=== PATIENT | female | born 1960 | race Caucasian/White ===

== ENCOUNTER → 2017-08-29 | Outpatient (CLI) | payer SELFPAY ==
--- NOTE | 2017-08-29 16:57 | Diagnostic Imaging Report ---
EXAMINATION: Magnetic resonance imaging of the right knee without intravenous contrast. DATE: August 29, 2017. COMPARISON: None. INDICATION: 56-year-old female, right knee pain. No known recent injury. TECHNIQUE: Multiplanar, multisequence non contrast enhanced MR imaging was accomplished. FINDINGS: MENISCI: The medial meniscus is intact. There is a longitudinal horizontal tear involving the anterior horn, body, and posterior horn of the lateral meniscus. LIGAMENTS AND TENDONS: The anterior and posterior cruciate ligaments are intact. The medial collateral ligament is intact. The iliotibial band, mid third lateral capsular ligament, fibular collateral ligament, biceps femoris tendon and conjoined tendon are intact. The quadriceps tendon and patella ligament are intact. JOINT: There is a 5 x 16 mm approximately 75% thickness cartilage defect involving the nlu-rr-czigugjtb weightbearing portion of the lateral femoral condyle with subjacent similar-sized cartilage defect involving the lateral tibial plateau. The medial compartment cartilage is intact. There is mild thinning and superficial irregularity of the patellofemoral compartment cartilage. There is minimal degenerative-related edema in the median patellar ridge. There is a trace knee joint effusion. There is low-level synovitis. BONE: The additional bone marrow signal is unremarkable. Specifically, negative for fracture, osteomyelitis, osteonecrosis, or marrow replacing process. BURSAE AND SOFT TISSUES: There is a very small slit-like Lara's cyst. There is nonspecific prepatellar subcutaneous edema. IMPRESSION: 1. Longitudinal horizontal tear involving the entire lateral meniscus. 2. Intact medial meniscus. 3. Intact anterior and posterior cruciate ligaments. 4. Moderate lateral and mild patellofemoral compartment arthritis. Trace knee joint effusion with low-level synovitis. Dictated by: Dictated on workstation # [id number]
== END ==
LOC: RAD 15:41
PROVIDERS: ATTEND Nurse Practitioner Family
DX: S83.281A Other tear of lateral meniscus, current injury, right knee, initial encounter (principal); M17.11 Unilateral primary osteoarthritis, right knee; X58.XXXA Exposure to other specified factors, initial encounter; Y99.8 Other external cause status
CPT/HCPCS: 73721

== ENCOUNTER → 2018-05-29 | Outpatient (CLI) | payer BC ==
--- NOTE | 2018-05-29 11:43 | Diagnostic Imaging Report ---
EXAMINATION: Magnetic resonance imaging of the left shoulder without contrast. DATE: May 29, 2018. COMPARISON: None. HISTORY: 57-year-old female, left shoulder pain. History of prior injury approximately 2.5 years ago. Limited range of motion. TECHNIQUE: Magnetic Resonance Imaging sequences were performed of the shoulder without contrast. FINDINGS: ROTATOR CUFF, LIGAMENTS, TENDONS, AND MUSCLES: There is tendinopathy of supraspinatus and infraspinatus. The teres minor tendon is intact. The subscapularis tendon is intact. There is normal rotator cuff muscle bulk and signal. LONG HEAD OF BICEPS: The biceps labral attachment and long head of the biceps tendon is intact. The long head of the biceps tendon is normally positioned within the bicipital groove. GLENOHUMERAL JOINT: The humeral head is well positioned relative to the glenoid. The labrum is grossly intact. There is no identified paralabral cyst. The articular cartilage is grossly intact. There is no joint effusion. ACROMIOCLAVICULAR JOINT: The acromioclavicular joint is normally aligned. The coracoclavicular and coracoacromial ligaments are intact. There are very mild acromioclavicular degenerative changes without undersurface osteophyte. BONE: The bones all have normal configuration. The bone marrow signal is within normal limits. Specifically, negative for fracture, osteomyelitis, osteonecrosis, or marrow replacing process. BURSAE AND SOFT TISSUES: The bursae and soft tissue surrounding the shoulder are unremarkable. IMPRESSION: 1. Negative for rotator cuff tendon tear. Supraspinatus and infraspinatus tendinopathy. 2. Very mild acromioclavicular degenerative changes without undersurface osteophyte. 3. Unremarkable appearance of the glenohumeral joint. 4. No acute fracture or bone contusion. Dictated by: Dictated on workstation # [id number]
== END ==
LOC: RAD 10:39
PROVIDERS: ATTEND Nurse Practitioner Family
DX: M19.012 Primary osteoarthritis, left shoulder (principal); M67.814 Other specified disorders of tendon, left shoulder
CPT/HCPCS: 73221

== ENCOUNTER → 2018-06-16 | Outpatient (CLI) | payer BC ==
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
== END ==
LOC: RAD 09:27
PROVIDERS: ATTEND Nurse Practitioner Family
DX: M48.02 Spinal stenosis, cervical region (principal); M50.321 Other cervical disc degeneration at C4-C5 level; M43.12 Spondylolisthesis, cervical region; G96.19 Other disorders of meninges, not elsewhere classified; M99.71 Connective tissue and disc stenosis of intervertebral foramina of cervical region; M50.21 Other cervical disc displacement, high cervical region; M46.82 Other specified inflammatory spondylopathies, cervical region
CPT/HCPCS: 72141

== ENCOUNTER → 2018-07-02 | Outpatient (CLI) | payer BC ==
--- NOTE | 2018-07-02 11:10 | Diagnostic Imaging Report ---
PROCEDURE: MRI left joint lower extremity without contrast. TECHNIQUE: Multiplanar, multisequence MR imaging of the left knee was performed without contrast. COMPARISON: None available. INDICATION: Chronic left knee pain and weakness. FINDINGS: MENISCI Medial meniscus: Normal. Lateral meniscus: Normal. LIGAMENTS ACL: Intact. PCL: Intact. MCL: Intact. LCL: The lateral collateral ligamentous complex is intact. EXTENSOR MECHANISM The extensor mechanism is intact. CARTILAGE Medial compartment: Medial compartment articular cartilage is well preserved without focal high-grade chondromalacia. Lateral compartment: The lateral compartment articular cartilage is preserved without high-grade chondromalacia. Patellofemoral compartment: Low-grade partial-thickness fibrillation of the surface lateral patellar facet. No full-thickness chondromalacia in the patellofemoral compartment. BONE No fracture, stress fracture or osteonecrosis. SOFT TISSUE No knee effusion or Lara's cyst. IMPRESSION: 1. No meniscal tear. 2. Minimal degenerative surface fraying of lateral patellar facet. Remainder of the articular cartilage in the knee is well-preserved. 3. Cruciate and collateral ligaments are normal. Dictated by: Dictated on workstation # [id number]
== END ==
LOC: RAD 08:11
PROVIDERS: ATTEND Nurse Practitioner Family
DX: M17.12 Unilateral primary osteoarthritis, left knee (principal)
CPT/HCPCS: 73721

== ENCOUNTER 2019-05-17 17:04 | Emergency (ER) | payer BC ==
[~2019-05-17] VITALS: Ht 165.1 cm; Wt 88.0 kg
--- OUTSIDE RECORDS SUMMARY | 2019-05-17 17:10 | XMS REPORT ---
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 Active 61124862 Problem Degenerative disc disease, cervical M50.30 Active 15116356 Problem Mixed hyperlipidemia E78.2 Active 753863739 Problem Primary osteoarthritis of left knee M17.12 Active 340207926150744 Problem Current moderate episode of major depressive disorder without prior episode F32.1 Active 18091342 Problem Injury of left shoulder, initial encounter S49.92XA Active 923375224 Problem Anterolisthesis M43.10 Active 087976843 Problem Primary osteoarthritis of right knee M17.11 Active 120092980 Problem Elevated blood pressure (not hypertension) R03.0 Active 742042908 ALLERGIES Substance Reaction Event Type Date Status Codeine Phosphate vomiting, stomach upset, hallucinations Drug Allergy May, Active bee stings anaphylaxis Non Drug Allergy May, Active ENCOUNTERS Encounter Location Date Diagnosis [facility] [id number] [address] Jun, Primary osteoarthritis of left knee M17.12 and Left anterior knee pain M25.562 [facility] [id number] [address] Jun, [facility] [id number] [place] [address] May, Cervical spine pain M54.2 [facility] [address] [address] May, [facility] [id number] [place] [address] May, Elevated blood pressure reading R03.0 ; Pain in right shoulder M25.511 ; Pain in left shoulder M25.512 ; Family history of rheumatoid arthritis Z82.61 ; Current moderate episode of major depressive disorder without prior episode F32.1 and 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 [id number] [place] [address] Nov, [address] [id number] [place] [address] Nov, [id number] [place] [phone] Oct[id number] [place] [address] Aug, [address] [id number] [place] [address] Aug, [address] [id number] [place] [address] Aug, [id number] [place] [address] Aug, Right anterior knee pain M25.561 [address] [id number] [place] [address] Jun, Cough R05 and Acute bronchitis, unspecified organism J20.9 [address] [facility] [id number] [place] [address] February, Encounter for routine adult health examination with abnormal findings Z00.01 [address] [facility] [id number] [place] [address] February, [address] [id number] [place] [address] February, Encounter for routine adult health examination with abnormal findings Z00.01 and Effusion of right knee M25.461 [address] [address] February, [address] [place] [address] Jan, Primary osteoarthritis of right knee M17.11 and Iliotibial band syndrome affecting right lower leg M76.31 [address] [id number] [place] [address] Jan, [id number] [place] [address] Jan, Acute pain of right knee M25.561 ; Hematuria R31.9 and Acute cystitis with hematuria N30.01 [address] [id number] [place] [address] Oct, Injury of left shoulder, initial encounter S49.92XA ; Elevated blood pressure (not hypertension) R03.0 and Facial lesion L98.9 IMMUNIZATIONS No Known Immunizations SOCIAL HISTORY Never Assessed REASON FOR VISIT Blood Pressure----DBennettRN PLAN OF CARE Activity Details Follow Up 3 Months, prn Reason:CHM/Pain/Depression VITAL SIGNS Height 65 in 2018-05-25 Weight 198 lbs 2018-05-25 Temperature 98.0 degrees Fahrenheit 2018-05-25 Heart Rate 100 bpm 2018-05-25 Respiratory Rate 20 2018-05-25 BMI 32.95 kg/m2 2018-05-25 Blood pressure systolic 172 mmHg 2018-05-25 Blood pressure diastolic 90 mmHg 2018-05-25 MEDICATIONS Medication Instructions Dosage Frequency Start Date End Date Duration Status Glucosamine Active Multivitamin/Minerals Active EPINEPHrine 0.3 MG/0.3ML Injection one time inject into thigh then go to nearest ER February, 1 dose Active Aleve 220 MG Orally every 12 hrs 1 tablet as needed 12h Active Trazodone HCl 50 mg Orally Once a day 1/2- 1 tablet daily at bedtime 24h May, 30 day(s) Active Tylenol 8 Hour Arthritis Pain 650 MG Orally every 8 hrs 2 tablets as needed 8h Active ProAir HFA 108 (90 Base) MCG/ACT Inhalation every 4 hrs 2 puffs as needed 4h Active RESULTS No Results PROCEDURES Procedure Date Ordered Result Body Site COMPLETE CBC W/AUTO DIFF WBC May 25, 2018 COMPREHEN METABOLIC PANEL May 25, 2018 VENIPUNCT, ROUTINE* May 25, 2018 LIPID PANEL May 25, 2018 ASSAY THYROID STIM HORMONE May 25, 2018 RBC SED RATE, AUTOMATED May 25, 2018 RHEUMATOID FACTOR, QUANT May 25, 2018 INSTRUCTIONS MEDICATIONS ADMINISTERED No Known Medications MEDICAL (GENERAL) HISTORY Type Description Date Medical History osteoarthritis Medical History degenerative joint disease Medical History depression Medical History hip dysplasia Surgical History tubal ligation Surgical History right knee arthroscopy x 2 20 years ago Surgical History carpal tunnel release - left 1997
--- OUTSIDE RECORDS SUMMARY | 2019-05-17 17:10 | XMS REPORT ---
Author Author THOM SAL Organization [facility] Address [address] [place] [address] Care Team Providers Care Manager Stars Name Role Phone SALTHOM Romero Unavailable PROBLEMS Type Condition ICD9-CM Code GHU32-LN Code Onset Dates Condition Status SNOMED Code Problem Cervical spinal stenosis M48.02 Active 47498221 Problem Perineural cysts G54.8 Active 71374667 Problem Degenerative disc disease, cervical M50.30 Active 99422355 Problem Mixed hyperlipidemia E78.2 Active 779181669 Problem Primary osteoarthritis of left knee M17.12 Active 724782975969900 Problem Current moderate episode of major depressive disorder without prior episode F32.1 Active 04117971 Problem Injury of left shoulder, initial encounter S49.92XA Active 749603743 Problem Anterolisthesis M43.10 Active 214163429 Problem Primary osteoarthritis of right knee M17.11 Active 974859527 Problem Elevated blood pressure (not hypertension) R03.0 Active 170531261 ALLERGIES Substance Reaction Event Type Date Status Codeine Phosphate vomiting, stomach upset, hallucinations Drug Allergy Jun, Active bee stings anaphylaxis Non Drug Allergy Jun, Active ENCOUNTERS Encounter Location Date Diagnosis [facility] [address] [address] Jun, [facility] [id number] [place] [address] Jun, Primary osteoarthritis of left knee M17.12 and Left anterior knee pain M25.562 [facility] [id number] [place] [address] Jun, [facility] [address] [address] May, Cervical spine pain M54.2 [facility] [id number] [place] [address] 16 May, 2018 [facility] [id number] [place] [address] May, Elevated blood pressure reading R03.0 ; Pain in right shoulder M25.511 ; Pain in left shoulder M25.512 ; Family history of rheumatoid arthritis Z82.61 ; Current moderate episode of major depressive disorder without prior episode F32.1 and 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 [facility] [id number] [place] [address] 19 Nov, 2017 [facility] [address] [address] Nov, [facility] [id number] [place] [phone] Oct, [facility] [id number] [place] [address] Aug, [facility] [id number] [place] [address] Aug, [facility] [id number] [place] [address] Aug, [facility] [id number] [place] [address] Aug, Right anterior knee pain M25.561 [address] [id number] [place] [address] Jun, Cough R05 and Acute bronchitis, unspecified organism J20.9 [facility] [id number] [place] [address] February, Encounter for routine adult health examination with abnormal findings Z00.01 [facility] [id number] [place] [address] February, [id number] [place] [address] February, Encounter for routine adult health examination with abnormal findings Z00.01 and Effusion of right knee M25.461 [address] [place] [address] February, [id number] [place] [address] Jan, Primary osteoarthritis of right knee M17.11 and Iliotibial band syndrome affecting right lower leg M76.31 [address] [facility] [id number] [place] [address] Jan, [id number] [place] [address] Jan, Acute pain of right knee M25.561 ; Hematuria R31.9 and Acute cystitis with hematuria N30.01 [address] [id number] [place] [address] Oct, Injury of left shoulder, initial encounter S49.92XA ; Elevated blood pressure (not hypertension) R03.0 and Facial lesion L98.9 IMMUNIZATIONS No Known Immunizations SOCIAL HISTORY Never Assessed REASON FOR VISIT knee pain, left-----DBennettRN PLAN OF CARE Activity Details Follow Up 3 Months, prn Reason:CHM/Osteoarthritis/ w/ Liban Pending Test MRI : Knee, Left w/o contrast VITAL SIGNS Height 65 in 2018-06-23 Weight 201 lbs 2018-06-23 Temperature 98.5 degrees Fahrenheit 2018-06-23 Heart Rate 100 bpm 2018-06-23 Respiratory Rate 20 2018-06-23 BMI 33.44 kg/m2 2018-06-23 Blood pressure systolic 124 mmHg 2018-06-23 Blood pressure diastolic 86 mmHg 2018-06-23 MEDICATIONS Medication Instructions Dosage Frequency Start Date End Date Duration Status Fish Oil 1000 MG Orally Once a day 1 capsule 24h Active Trazodone HCl 50 mg Orally Once a day 1/2- 1 tablet daily at bedtime 24h May, 30 day(s) Active EPINEPHrine 0.3 MG/0.3ML Injection one time inject into thigh then go to nearest ER February, 1 dose Active PredniSONE 10 mg Orally Once a day 4 tabs x 4 days, 3 tabs x 4 days, 2 tabs x 4 days then 1 tab x 4 days 24h May, Jun, 16 days Active RESULTS Name Result Date Reference Range Xray : Knee, Left 3 views (IN HOUSE) 2018-06-23 PROCEDURES Procedure Date Ordered Result Body Site X-RAY EXAM OF KNEE, 3 Jun 23, 2018 INSTRUCTIONS MEDICATIONS ADMINISTERED No Known Medications MEDICAL (GENERAL) HISTORY Type Description Date Medical History osteoarthritis Medical History degenerative joint disease Medical History depression Medical History hip dysplasia Surgical History tubal ligation Surgical History right knee arthroscopy x 2 20 years ago Surgical History carpal tunnel release - left 1997
--- OUTSIDE RECORDS SUMMARY | 2019-05-17 17:10 | XMS REPORT ---
Author Author THOM Mendez Organization [facility] Address [address] [place] [address] Care Team Providers Care Warehouse Distribution Associate Name Role Phone THOM Mendez Unavailable PROBLEMS Type Condition ICD9-CM Code PGF10-CY Code Onset Dates Condition Status SNOMED Code Problem Cervical spinal stenosis M48.02 Active 50201457 Problem Perineural cysts G54.8 Active 38410469 Problem Degenerative disc disease, cervical M50.30 Active 05286636 Problem Mixed hyperlipidemia E78.2 Active 460990132 Problem Primary osteoarthritis of left knee M17.12 Active 421278141197119 Problem Current moderate episode of major depressive disorder without prior episode F32.1 Active 17876960 Problem Injury of left shoulder, initial encounter S49.92XA Active 199081668 Problem Anterolisthesis M43.10 Active 293881552 Problem Primary osteoarthritis of right knee M17.11 Active 658685035 Problem Elevated blood pressure (not hypertension) R03.0 Active 089298697 ALLERGIES No Information ENCOUNTERS Encounter Location Date Diagnosis [place] [id number] [place] [address] Jul, [facility] [address] [place] [address] Jun, [facility] [id number] [place] [address] Jun, Primary osteoarthritis of left knee M17.12 and Left anterior knee pain M25.562 [facility] [id number] [place] [address] Jun, [facility] [address] [address] May, Cervical spine pain M54.2 [facility] [id number] [place] [address] 16 May, 2018 [facility] [id number] [place] [address] May, Elevated blood pressure reading R03.0 ; Pain in right shoulder M25.511 ; Pain in left shoulder M25.512 ; Family history of rheumatoid arthritis Z82.61 ; Current moderate episode of major depressive disorder without prior episode F32.1 and 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 [facility] [id number] [place] [phone] 19 Nov, 2017 [place] [address] [address] Nov, [place] [id number] [place] [address] Oct, [place] [id number] [place] [address] Aug, [facility] [id number] [place] [phone] Aug, [place] [id number] [place] [address] Aug, [facility] [id number] [place] [address] Aug, Right anterior knee pain M25.561 [place] [id number] [place] [address] Jun, Cough R05 and Acute bronchitis, unspecified organism J20.9 [place] [id number] [place] [address] 12 Feb, 2017 Encounter for routine adult health examination with abnormal findings Z00.01 [place] [id number] [place] [phone] February, [place] [address] [place] [id number] [place] [address] February, Encounter for routine adult health examination with abnormal findings Z00.01 and Effusion of right knee M25.461 [place] [address] [place] [address] February, [place] [address] [place] [address] Jan, Primary osteoarthritis of right knee M17.11 and Iliotibial band syndrome affecting right lower leg M76.31 [place] [id number] [place] [address] Jan, [place] [address] [place] [address] Jan, Acute pain of right knee M25.561 ; Hematuria R31.9 and Acute cystitis with hematuria N30.01 [place] [address] [place] [address] Oct, Injury of left shoulder, initial encounter S49.92XA ; Elevated blood pressure (not hypertension) R03.0 and Facial lesion L98.9 IMMUNIZATIONS No Known Immunizations SOCIAL HISTORY Never Assessed REASON FOR VISIT Medication request PLAN OF CARE VITAL SIGNS MEDICATIONS Medication Instructions Dosage Frequency Start Date End Date Duration Status Baclofen 20 mg Orally every 8 hrs prn 1 tablet with food or milk Jun, Active RESULTS No Results PROCEDURES No Known procedures INSTRUCTIONS MEDICATIONS ADMINISTERED No Known Medications MEDICAL (GENERAL) HISTORY Type Description Date Medical History osteoarthritis Medical History degenerative joint disease Medical History depression Medical History hip dysplasia Surgical History tubal ligation Surgical History right knee arthroscopy x 2 20 years ago Surgical History carpal tunnel release - left 1997
--- OUTSIDE RECORDS SUMMARY | 2019-05-17 17:10 | XMS REPORT ---
Author Author THOM SAL Organization [facility] Address [address] [place] [address] Care Team Providers Care Chief Environmental Commitment Officer Name Role Phone SALHARSHAD RomeroELE Unavailable PROBLEMS Type Condition ICD9-CM Code LUI42-AD Code Onset Dates Condition Status SNOMED Code Problem Cervical spinal stenosis M48.02 Active 88042409 Problem Perineural cysts G54.8 Active 52160713 Problem Degenerative disc disease, cervical M50.30 Active 60936818 Problem Mixed hyperlipidemia E78.2 Active 891531018 Problem Primary osteoarthritis of left knee M17.12 Active 213441612167973 Problem Current moderate episode of major depressive disorder without prior episode F32.1 Active 35416750 Problem Injury of left shoulder, initial encounter S49.92XA Active 237341629 Problem Anterolisthesis M43.10 Active 922084504 Problem Primary osteoarthritis of right knee M17.11 Active 586635453 Problem Elevated blood pressure (not hypertension) R03.0 Active 720619631 ALLERGIES Substance Reaction Event Type Date Status Codeine Phosphate vomiting, stomach upset, hallucinations Drug Allergy May, Active bee stings anaphylaxis Non Drug Allergy May, Active ENCOUNTERS Encounter Location Date Diagnosis [facility] [address], [place] [address] Jun, [facility] [address] [id number] [place] [address] Jun, Primary osteoarthritis of left knee M17.12 and Left anterior knee pain M25.562 [facility] [id number] [place] [address] Jun, [facility] [address] [place] [address] May, Cervical spine pain M54.2 [facility] [id number] [place] [address] 16 May, 2018 [facility] [id number] [place] [address] May, Elevated blood pressure reading R03.0 ; Pain in right shoulder M25.511 ; Pain in left shoulder M25.512 ; Family history of rheumatoid arthritis Z82.61 ; Current moderate episode of major depressive disorder without prior episode F32.1 and 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 [facility] [id number] [place] [address] 19 Nov, 2017 [facility] [address] [address] Nov, [facility] [address] [id number] [place] [address] Oct, [facility] [id number] [place] [address] Aug, [facility] [id number] [place] [address] Aug, [facility] [id number] [place] [address] Aug, [facility] [id number] [place] [address] Aug, Right anterior knee pain M25.561 [place] [address] [id number] [place] [address] Jun, Cough R05 and Acute bronchitis, unspecified organism J20.9 [facility] [address] [place] [address] [id number] [place] [address] February, Encounter for routine adult health examination with abnormal findings Z00.01 [facility] [address] [place] [address] [id number] [place] [address] February, [place] [address] [id number] [place] [address] February, Encounter for routine adult health examination with abnormal findings Z00.01 and Effusion of right knee M25.461 [place] [address] [place] [address] February, [place] [address] [place] [address] [id number] [place] [address] Jan, Primary osteoarthritis of right knee M17.11 and Iliotibial band syndrome affecting right lower leg M76.31 [place] [address] [place] [address] [id number] [place] [address] Jan, [place] [address] [place] [address] [id number] [place] [address] Jan, Acute pain of right knee M25.561 ; Hematuria R31.9 and Acute cystitis with hematuria N30.01 [place] [address] [place] [id number] [place] [address] Oct, Injury of left shoulder, initial encounter S49.92XA ; Elevated blood pressure (not hypertension) R03.0 and Facial lesion L98.9 IMMUNIZATIONS No Known Immunizations SOCIAL HISTORY Never Assessed REASON FOR VISIT RT shoulder pain-Gloria, Pt states LT shoulder hurts as well, MRI has been d one on it, though., Pt states she has neck pain x1 week. PLAN OF CARE Activity Details Follow Up prn, 3 Months Reason:CHM/pain VITAL SIGNS Height 65 in 2018-06-08 Weight 197.5 lbs 2018-06-08 Temperature 97.9 degrees Fahrenheit 2018-06-08 Heart Rate 113 bpm 2018-06-08 Respiratory Rate 20 2018-06-08 BMI 32.86 kg/m2 2018-06-08 Blood pressure systolic 132 mmHg 2018-06-08 Blood pressure diastolic 88 mmHg 2018-06-08 MEDICATIONS Medication Instructions Dosage Frequency Start Date End Date Duration Status Tylenol 8 Hour Arthritis Pain 650 MG Orally every 8 hrs 2 tablets as needed 8h Active Aleve 220 MG Orally every 12 hrs 1 tablet as needed 12h Active Glucosamine Active PredniSONE 10 mg Orally Once a day 4 tabs x 4 days, 3 tabs x 4 days, 2 tabs x 4 days then 1 tab x 4 days 24h May, Jun, 16 days Active Multivitamin/Minerals Active Trazodone HCl 50 mg Orally Once a day 1/2- 1 tablet daily at bedtime 24h May, 30 day(s) Active EPINEPHrine 0.3 MG/0.3ML Injection one time inject into thigh then go to nearest ER February, 1 dose Active Fish Oil 1000 MG Orally Once a day 1 capsule 24h Active RESULTS Name Result Date Reference Range MRI : Cervical w/o Contrast 2018-06-16 PROCEDURES No Known procedures INSTRUCTIONS MEDICATIONS ADMINISTERED No Known Medications MEDICAL (GENERAL) HISTORY Type Description Date Medical History osteoarthritis Medical History degenerative joint disease Medical History depression Medical History hip dysplasia Surgical History tubal ligation Surgical History right knee arthroscopy x 2 20 years ago Surgical History carpal tunnel release - left 1997
--- OUTSIDE RECORDS SUMMARY | 2019-05-17 17:10 | XMS REPORT ---
Author Author THOM SAL Organization [facility] Address [address] [place] [address] Care Team Providers Care Website Project Manager Name Role Phone SALTHOM Romero Unavailable PROBLEMS Type Condition ICD9-CM Code JED85-QA Code Onset Dates Condition Status SNOMED Code Problem Cervical spinal stenosis M48.02 Active 21671606 Problem Perineural cysts G54.8 Active 25724765 Problem Degenerative disc disease, cervical M50.30 Active 98881002 Problem Mixed hyperlipidemia E78.2 Active 508235271 Problem Primary osteoarthritis of left knee M17.12 Active 995298851366103 Problem Current moderate episode of major depressive disorder without prior episode F32.1 Active 00399010 Problem Injury of left shoulder, initial encounter S49.92XA Active 998234594 Problem Anterolisthesis M43.10 Active 700783371 Problem Primary osteoarthritis of right knee M17.11 Active 204051045 Problem Elevated blood pressure (not hypertension) R03.0 Active 387395515 ALLERGIES No Information ENCOUNTERS Encounter Location Date Diagnosis [facility] [address] [place] [address] Jun, [facility] [address] [place] [id number] [place] [address] Jun, Primary osteoarthritis of left knee M17.12 and Left anterior knee pain M25.562 [facility] [address] [address] Jun, [facility] [id number] [place] [address] May, Cervical spine pain M54.2 [facility] [id number] [place] [address] May, [facility] [address] [place] [address] May, Elevated blood pressure reading R03.0 ; Pain in right shoulder M25.511 ; Pain in left shoulder M25.512 ; Family history of rheumatoid arthritis Z82.61 ; Current moderate episode of major depressive disorder without prior episode F32.1 and 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 [place] [address] [id number] [place] [address] Nov, [place] [address] [place] [id number] [place] [address] Nov, [place] [address] [place] [id number] [place] [address] Oct, [place] [address] [place] [id number] [place] [address] Aug, [place] [address] [place] [id number] [place] [address] Aug, [place] [address] [place] [address] [id number] [place] [address] Aug, [place] [address] [place] [id number] [place] [address] Aug, Right anterior knee pain M25.561 [place] [address] [place] [id number] [place] [address] Jun, Cough R05 and Acute bronchitis, unspecified organism J20.9 [place] [address] [place] [address] [id number] [place] [address] February, Encounter for routine adult health examination with abnormal findings Z00.01 [place] [address] [place] [address] [id number] [place] [address] February, [place] [address] [place] [address] [id number] [place] [address] February, Encounter for routine adult health examination with abnormal findings Z00.01 and Effusion of right knee M25.461 [place] [address] [place] [address] [address] February, [facility] [address] [address] Jan, Primary osteoarthritis of right knee M17.11 and Iliotibial band syndrome affecting right lower leg M76.31 [place] [address] [place] [address] Jan, [place] [address] [place] [address] Jan, Acute pain of right knee M25.561 ; Hematuria R31.9 and Acute cystitis with hematuria N30.01 [place] [address], [place] [address] Oct, Injury of left shoulder, initial encounter S49.92XA ; Elevated blood pressure (not hypertension) R03.0 and Facial lesion L98.9 IMMUNIZATIONS No Known Immunizations SOCIAL HISTORY Never Assessed REASON FOR VISIT DI results PLAN OF CARE VITAL SIGNS MEDICATIONS Unknown Medications RESULTS No Results PROCEDURES No Known procedures INSTRUCTIONS MEDICATIONS ADMINISTERED No Known Medications MEDICAL (GENERAL) HISTORY Type Description Date Medical History osteoarthritis Medical History degenerative joint disease Medical History depression Medical History hip dysplasia Surgical History tubal ligation Surgical History right knee arthroscopy x 2 20 years ago Surgical History carpal tunnel release - left 1997
--- OUTSIDE RECORDS SUMMARY | 2019-05-17 17:10 | XMS REPORT ---
Author Author ALMAS VIRAMONTES [facility] Address [address] [place] [address] Care Team Providers Care Dramatic Teacher Name Role Phone LAMAS VIRAMONTES Unavailable PROBLEMS Type Condition ICD9-CM Code WAC56-UV Code Onset Dates Condition Status SNOMED Code Problem Cervical spinal stenosis M48.02 Active 93267613 Problem Perineural cysts G54.8 Active 29252605 Problem Degenerative disc disease, cervical M50.30 Active 55199532 Problem Mixed hyperlipidemia E78.2 Active 177003145 Problem Primary osteoarthritis of left knee M17.12 Active 953255170809005 Problem Current moderate episode of major depressive disorder without prior episode F32.1 Active 05725905 Problem Injury of left shoulder, initial encounter S49.92XA Active 044358778 Problem Anterolisthesis M43.10 Active 334402112 Problem Primary osteoarthritis of right knee M17.11 Active 385005439 Problem Elevated blood pressure (not hypertension) R03.0 Active 411515036 ALLERGIES No Information ENCOUNTERS Encounter Location Date Diagnosis [facility] [place] [id number] [place] [address] Sep, [facility] [place] [id number] [place] [address] Jul, [facility] [place] [id number] [place] [address] Jun, [facility] [place] [id number] [place] [address] Jun, Primary osteoarthritis of left knee M17.12 and Left anterior knee pain M25.562 [facility] [place] [id number] [place] [address] Jun, [facility] [place] [id number] [place] [address] May, Cervical spine pain M54.2 [place] [id number] [place] [address] May, [facility] [place] [id number] [place] [address] May, Elevated blood pressure reading R03.0 ; Pain in right shoulder M25.511 ; Pain in left shoulder M25.512 ; Family history of rheumatoid arthritis Z82.61 ; Current moderate episode of major depressive disorder without prior episode F32.1 and 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 [place] [address] [address] Nov, [place] [address] [address] Nov, [place] [address] [address] Oct, [facility] [place] [id number] [place] [address] Aug, [place] [address] [address] Aug, [place] [id number] [place] [address] Aug, [place] [id number] [place] [address] Aug, Right anterior knee pain M25.561 [place] [id number] [place] [address] Jun, Cough R05 and Acute bronchitis, unspecified organism J20.9 [place] [id number] [place] [address] February, Encounter for routine adult health examination with abnormal findings Z00.01 [place] [address] [address] February, [place] [address] [place] [address] February, Encounter for routine adult health examination with abnormal findings Z00.01 and Effusion of right knee M25.461 [place] [address] [place] [address] February, [place] [id number] [place] [address] Jan, Primary osteoarthritis of right knee M17.11 and Iliotibial band syndrome affecting right lower leg M76.31 [place] [id number] [place] [address] Jan, [place] [address] [place] [address] Jan, Acute pain of right knee M25.561 ; Hematuria R31.9 and Acute cystitis with hematuria N30.01 [place] [address] [place] [address] Oct, Injury of left shoulder, initial encounter S49.92XA ; Elevated blood pressure (not hypertension) R03.0 and Facial lesion L98.9 IMMUNIZATIONS No Known Immunizations SOCIAL HISTORY Never Assessed REASON FOR VISIT PLAN OF CARE VITAL SIGNS MEDICATIONS Medication Instructions Dosage Frequency Start Date End Date Duration Status Famotidine 20 MG Orally 2 times a day 1 tablet at bedtime 12h 30 day(s) Active Baclofen 10 MG Orally Three times a day 1 tablet 8h 24 Jun, 2018 90 days Unknown Fish Oil 1000 MG Orally Once a day 1 capsule 24h Unknown Melatonin Maximum Strength 5 MG Orally Once a day 4 tablets 24h 30 day(s) Active Trazodone HCl 50 mg Orally Once a day 1/2- 1 tablet daily at bedtime 24h 13 May, 2018 30 day(s) Unknown Glucosamine 500 MG Orally 2 times a day 3 capsules 12h 30 day(s) Active Percocet 7.5-325 MG Orally every 6 hrs 1 to 2 tablet as needed 6h Active EPINEPHrine 0.3 MG/0.3ML Injection one time inject into thigh then go to nearest ER February, 1 dose Unknown Acetaminophen ER 650 MG Orally 2 times a day 2 tablets 12h Active Aleve 220 MG Orally Once a day 2 tablets 24h Active RESULTS No Results PROCEDURES No Known [...]
--- OUTSIDE RECORDS SUMMARY | 2019-05-17 17:10 | XMS REPORT ---
Author Author THOM Mendez Organization [facility] Address [address] [place] [address] Care Team Providers Care Pea Viner Mechanic Name Role Phone THOM Mendez Unavailable PROBLEMS Type Condition ICD9-CM Code RXZ19-CF Code Onset Dates Condition Status SNOMED Code Problem Cervical spinal stenosis M48.02 Active 53529361 Problem Perineural cysts G54.8 Active 04392892 Problem Degenerative disc disease, cervical M50.30 Active 78795589 Problem Mixed hyperlipidemia E78.2 Active 509457460 Problem Primary osteoarthritis of left knee M17.12 Active 598565522819794 Problem Current moderate episode of major depressive disorder without prior episode F32.1 Active 17766724 Problem Injury of left shoulder, initial encounter S49.92XA Active 535002003 Problem Anterolisthesis M43.10 Active 426927192 Problem Primary osteoarthritis of right knee M17.11 Active 563594440 Problem Elevated blood pressure (not hypertension) R03.0 Active 636544660 ALLERGIES No Information ENCOUNTERS Encounter Location Date Diagnosis [place] [address] [place] [address] Jul, [facility] [address] [place] [address] Jun, [facility] [address] [place] [id number] [place] [address] Jun, Primary osteoarthritis of left knee M17.12 and Left anterior knee pain M25.562 [facility] [id number] [place] [address] Jun, [facility] [address], [place] [address] May, Cervical spine pain M54.2 [facility] [id number] [place] [address] 16 May, 2018 [facility] [address] [id number] [place] [address] May, Elevated blood pressure reading R03.0 ; Pain in right shoulder M25.511 ; Pain in left shoulder M25.512 ; Family history of rheumatoid arthritis Z82.61 ; Current moderate episode of major depressive disorder without prior episode F32.1 and 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 [facility] [address] [id number] [place] [address] 19 Nov, 2017 [place] [address] [address] Nov, [place] [address] [place] [id number] [place] [address] Oct, [place] [address] [place] [id number] [place] [address] Aug, [facility] [address] [id number] [place] [address] Aug, [place] [address] [address] [id number] [place] [address] Aug, [facility] [address] [id number] [place] [address] Aug, Right anterior knee pain M25.561 [place] [address] [id number] [place] [address] Jun, Cough R05 and Acute bronchitis, unspecified organism J20.9 [place] [address] [id number] [place] [address] 12 Feb, 2017 Encounter for routine adult health examination with abnormal findings Z00.01 [place] [address] [id number] [place] [address] February, [place] [address] [place] [id number] [place] [address] February, Encounter for routine adult health examination with abnormal findings Z00.01 and Effusion of right knee M25.461 [place] [address] [address] February, [place] [address] [address] Jan, Primary osteoarthritis of right knee M17.11 and Iliotibial band syndrome affecting right lower leg M76.31 [place] [address] [place] [address] Jan, [place] [address] [place] [address] Jan, Acute pain of right knee M25.561 ; Hematuria R31.9 and Acute cystitis with hematuria N30.01 [place] [address], [place] [address] Oct, Injury of left shoulder, initial encounter S49.92XA ; Elevated blood pressure (not hypertension) R03.0 and Facial lesion L98.9 IMMUNIZATIONS No Known Immunizations SOCIAL HISTORY Never Assessed REASON FOR VISIT MRI results PLAN OF CARE VITAL SIGNS MEDICATIONS Medication Instructions Dosage Frequency Start Date End Date Duration Status Baclofen 10 MG Orally Three times a day 1 tablet 8h Jun, 90 days Active RESULTS No Results PROCEDURES No Known [...]
--- OUTSIDE RECORDS SUMMARY | 2019-05-17 17:11 | XMS REPORT ---
Author Author DORONHARSHADTHOM [facility] Address [address] [place] [address] Care Team Providers Care Screen Cleaner Name Role Phone SALHARSHAD RomeroELE Unavailable PROBLEMS Type Condition ICD9-CM Code LIY51-XY Code Onset Dates Condition Status SNOMED Code Problem Primary osteoarthritis of right knee M17.11 Active 488409644 Problem Injury of left shoulder, initial encounter S49.92XA Active 745367250 Problem Elevated blood pressure (not hypertension) R03.0 Active 232142741 ALLERGIES No Information ENCOUNTERS Encounter Location Date Diagnosis [place] [address] [place] [id number] [place] [address] Nov, [facility] [id number] [place] [address] Nov, [facility] [id number] [place] [address] Oct, [facility] [id number] [place] [address] Aug, [place] [address] [address] [id number] [place] [address] Aug, [facility] [id number] [place] [address] Aug, [facility] [id number] [place] [address] Aug, Right anterior knee pain M25.561 [facility] [id number] [place] [address] Jun, Cough R05 and Acute bronchitis, unspecified organism J20.9 [facility] [address] [address] February, Encounter for routine adult health examination with abnormal findings Z00.01 [place] [address] [place] [address] February, [place] [address] [address] [id number] [place] [address] February, Encounter for routine adult health examination with abnormal findings Z00.01 and Effusion of right knee M25.461 [place] [address] [address] [id number] [place] [address] February, [place] [address] [address] [id number] [place] [address] Jan, Primary osteoarthritis of right knee M17.11 and Iliotibial band syndrome affecting right lower leg M76.31 [place] [address] [address] [id number] [place] [address] Jan, [place] [address] [address] [id number] [place] [address] Jan, Acute pain of right knee M25.561 ; Hematuria R31.9 and Acute cystitis with hematuria N30.01 [place] [address] [place] [address] Oct, Injury of left shoulder, initial encounter S49.92XA ; Elevated blood pressure (not hypertension) R03.0 and Facial lesion L98.9 IMMUNIZATIONS No Known Immunizations SOCIAL HISTORY Never Assessed REASON FOR VISIT PLAN OF CARE VITAL SIGNS MEDICATIONS Unknown Medications RESULTS No Results PROCEDURES No Known procedures INSTRUCTIONS MEDICATIONS ADMINISTERED No Known Medications MEDICAL (GENERAL) HISTORY Type Description Date Surgical History tubal ligation Surgical History right knee arthroscopy x 2 20 years ago Surgical History carpal tunnel release - left 1997
--- OUTSIDE RECORDS SUMMARY | 2019-05-17 17:11 | XMS REPORT ---
Author Author THOM SAL Organization [facility] Address [address] [place] [address] Care Team Providers Care Care Aide Name Role Phone THOM SAL Unavailable PROBLEMS Type Condition ICD9-CM Code JKO16-NL Code Onset Dates Condition Status SNOMED Code Problem Primary osteoarthritis of right knee M17.11 Active 605305066 Problem Injury of left shoulder, initial encounter S49.92XA Active 513197598 Problem Elevated blood pressure (not hypertension) R03.0 Active 635516854 ALLERGIES No Information SOCIAL HISTORY Never Assessed PLAN OF CARE VITAL SIGNS MEDICATIONS No Known Medications RESULTS Name Result Date Reference Range THYROID ANALYZER 2017-02-21 TSH 3.920 0.450-4.500 A1C 2017-02-21 Hemoglobin A1c 5.1 4.8-5.6 CBC 2017-02-21 WBC 7.1 3.4-10.8 RBC 4.57 3.77-5.28 Hemoglobin 14.0 11.1-15.9 Hematocrit 42.3 34.0-46.6 MCV 93 79-97 MCH 30.6 26.6-33.0 MCHC 33.1 31.5-35.7 RDW 13.7 12.3-15.4 Platelets 303 150-379 Neutrophils 65 Lymphs 26 Monocytes 7 Eos 1 Basos 0 Neutrophils (Absolute) 4.6 1.4-7.0 Lymphs (Absolute) 1.9 0.7-3.1 Monocytes(Absolute) 0.5 0.1-0.9 Eos (Absolute) 0.1 0.0-0.4 Baso (Absolute) 0.0 0.0-0.2 Immature Granulocytes 1 Immature Grans (Abs) 0.1 0.0-0.1 LIPID PANEL 2017-02-21 Cholesterol, Total 318 100-199 Triglycerides 112 0-149 HDL Cholesterol 121 >39 VLDL Cholesterol Terence 22 5-40 LDL Cholesterol Calc 175 0-99 CMP 2017-02-21 Glucose, Serum 83 65-99 BUN 19 6-24 Creatinine, Serum 0.77 0.57-1.00 eGFR If NonAfricn Am 88 >59 eGFR If Africn Am 101 >59 BUN/Creatinine Ratio 25 9-23 Sodium, Serum 141 134-144 Potassium, Serum 4.5 3.5-5.2 Chloride, Serum 106 96-106 Carbon Dioxide, Total 21 18-29 Calcium, Serum 9.3 8.7-10.2 Protein, Total, Serum 7.0 6.0-8.5 Albumin, Serum 4.5 3.5-5.5 Globulin, Total 2.5 1.5-4.5 A/G Ratio 1.8 1.2-2.2 Bilirubin, Total 0.6 0.0-1.2 Alkaline Phosphatase, S 86 39-117 AST (SGOT) 14 0-40 ALT (SGPT) 17 0-32 PROCEDURES Procedure Date Ordered Result Body Site ASSAY THYROID STIM HORMONE February 21, 2017 GLYCATED HEMOGLOBIN TEST February 21, 2017 LIPID PANEL February 21, 2017 COMPLETE CBC W/AUTO DIFF WBC February 21, 2017 VENIPUNCT, ROUTINE* February 21, 2017 COMPREHEN METABOLIC PANEL February 21, 2017 IMMUNIZATIONS No Known Immunizations MEDICAL (GENERAL) HISTORY Type Description Date Surgical History tubal ligation Surgical History right knee arthroscopy x 2 20 years ago Surgical History carpal tunnel release - left 1997
--- OUTSIDE RECORDS SUMMARY | 2019-05-17 17:11 | XMS REPORT ---
Author Author DORONHARSHADTHOM [facility] Address [address] [place] [address] Care Team Providers Care Division Merchandise Manager Name Role Phone SALTHOM Romero Unavailable PROBLEMS Type Condition ICD9-CM Code HNW70-XK Code Onset Dates Condition Status SNOMED Code Problem Primary osteoarthritis of right knee M17.11 Active 609318246 Problem Injury of left shoulder, initial encounter S49.92XA Active 836728436 Problem Elevated blood pressure (not hypertension) R03.0 Active 959489836 ALLERGIES Substance Reaction Event Type Date Status Percocet hives Drug Allergy Jun, Active Codeine Phosphate vomiting, stomach upset, hallucinations Drug Allergy Jun, Active bee stings anaphylaxis Non Drug Allergy Jun, Active ENCOUNTERS Encounter Location Date Diagnosis [facility] [id number] [place] [address] Nov, [facility] [id number] [place] [address] Nov, [facility] [id number] [place] [address] Oct, [facility] [id number] [place] [address] Aug, [facility] [id number] [place] [address] Aug, [facility] [id number] [place] [address] Aug, [facility] [id number] [place] [address] Aug, Right anterior knee pain M25.561 [facility] [id number] [place] [address] Jun, Cough R05 and Acute bronchitis, unspecified organism J20.9 [place] [address] [address] February, Encounter for routine adult health examination with abnormal findings Z00.01 [place] [address] [address] February, [place] [address] [address] February, Encounter for routine adult health examination with abnormal findings Z00.01 and Effusion of right knee M25.461 [place] [address] [address] February, [place] [address] [address] Jan, Primary osteoarthritis of right knee M17.11 and Iliotibial band syndrome affecting right lower leg M76.31 [place] [address] [address] Jan, [place] [address] [address] Jan, Acute pain of right knee M25.561 ; Hematuria R31.9 and Acute cystitis with hematuria N30.01 [place] [address] [address] Oct, Injury of left shoulder, initial encounter S49.92XA ; Elevated blood pressure (not hypertension) R03.0 and Facial lesion L98.9 IMMUNIZATIONS No Known Immunizations SOCIAL HISTORY Never Assessed REASON FOR VISIT Cough, chest congestion, and fatigued, pt. went into urgent care and was told marco guillory has walking pneumonia and she is not any better, ABHILASH Ramos PLAN OF CARE Activity Details Follow Up 1 Week if not improving Reason: VITAL SIGNS Height 65 in 2017-07-08 Weight 186.7 lbs 2017-07-08 Temperature 98.9 degrees Fahrenheit 2017-07-08 Heart Rate 86 bpm 2017-07-08 Respiratory Rate 20 2017-07-08 Oximetry 94 % 2017-07-08 BMI 31.07 kg/m2 2017-07-08 Blood pressure systolic 129 mmHg 2017-07-08 Blood pressure diastolic 78 mmHg 2017-07-08 MEDICATIONS Medication Instructions Dosage Frequency Start Date End Date Duration Status Doxycycline Monohydrate 100 mg Orally every 12 hrs 1 capsule 12h Jun, Jul, 10 days Active ProAir HFA 108 (90 Base) MCG/ACT Inhalation every 4 hrs 2 puffs as needed 4h Active Aleve 220 MG Orally every 12 hrs 1 tablet as needed 12h Active EPINEPHrine 0.3 MG/0.3ML Injection one time inject into thigh then go to nearest ER February, 1 dose Active Tessalon Perles 100 mg Orally Three times a day 1 capsule as needed 8h Jun, Jul, [address] Lomas Wort Active Multivitamin/Minerals Active Glucosamine Active EPINEPHrine HCl (Anaphylaxis) Active RESULTS Name Result Date Reference Range Xray : Chest (IN HOUSE) 2017-07-08 MYCOPLASMA, IgM 2017-07-08 M pneumoniae IgM Abs <[id number] PROCEDURES Procedure Date Ordered Result Body Site CHEST X-RAY Jul 08, 2017 MEASURE BLOOD OXYGEN LEVEL Jul 08, 2017 VENIPUNCT, ROUTINE* Jul 08, 2017 MYCOPLASMA ANTIBODY Jul 08, 2017 INSTRUCTIONS MEDICATIONS ADMINISTERED No Known Medications MEDICAL (GENERAL) HISTORY Type Description Date Surgical History tubal ligation Surgical History right knee arthroscopy x 2 20 years ago Surgical History carpal tunnel release - left 1997
--- OUTSIDE RECORDS SUMMARY | 2019-05-17 17:11 | XMS REPORT ---
Author Author DORON THOM Organization [facility] Address [address] [place] [address] Care Team Providers Care Tree Scout Name Role Phone SALTHOM Romero Unavailable PROBLEMS Type Condition ICD9-CM Code LTS11-PN Code Onset Dates Condition Status SNOMED Code Problem Primary osteoarthritis of right knee M17.11 Active 202986429 Problem Injury of left shoulder, initial encounter S49.92XA Active 334497916 Problem Elevated blood pressure (not hypertension) R03.0 Active 032524889 ALLERGIES Substance Reaction Event Type Date Status Codeine Phosphate vomiting, stomach upset, hallucinations Drug Allergy Aug, Active bee stings anaphylaxis Non Drug Allergy Aug, Active ENCOUNTERS Encounter Location Date Diagnosis [facility] [id number] [place] [phone] Nov, [facility] [id number] [place] [address] Nov, [facility] [id number] [place] [address] Oct, [facility] [address] [place] [address] Aug, [facility] [id number] [place] [address] Aug, [facility] [id number] [place] [address] Aug, [facility] [id number] [place] [address] Aug, Right anterior knee pain M25.561 [facility] [id number] [place] [address] Jun, Cough R05 and Acute bronchitis, unspecified organism J20.9 [place] [address], [place] [address] February, Encounter for routine adult health examination with abnormal findings Z00.01 [place] [address], [place] [address] February, [place] [address] [place] [address] [id number] [place] [address] February, Encounter for routine adult health examination with abnormal findings Z00.01 and Effusion of right knee M25.461 [place] [address] [id number] [place] [address] February, [place] [address] [address] [id number] [place] [address] Jan, Primary osteoarthritis of right knee M17.11 and Iliotibial band syndrome affecting right lower leg M76.31 [place] [address] [address] [id number] [place] [address] Jan, [place] [address] [id number] [place] [address] Jan, Acute pain of right knee M25.561 ; Hematuria R31.9 and Acute cystitis with hematuria N30.01 [place] [address], [place] [address] Oct, Injury of left shoulder, initial encounter S49.92XA ; Elevated blood pressure (not hypertension) R03.0 and Facial lesion L98.9 IMMUNIZATIONS No Known Immunizations SOCIAL HISTORY Never Assessed REASON FOR VISIT allergy verification PLAN OF CARE VITAL SIGNS MEDICATIONS Unknown Medications RESULTS No Results PROCEDURES No Known procedures INSTRUCTIONS MEDICATIONS ADMINISTERED No Known Medications MEDICAL (GENERAL) HISTORY Type Description Date Surgical History tubal ligation Surgical History right knee arthroscopy x 2 20 years ago Surgical History carpal tunnel release - left 1997
--- OUTSIDE RECORDS SUMMARY | 2019-05-17 17:11 | XMS REPORT ---
Author Author THOM SAL Organization [facility] Address [address] [place] [address] Care Team Providers Care Pcb Designer Name Role Phone SALTHOM Romero Unavailable PROBLEMS Type Condition ICD9-CM Code DBD04-AX Code Onset Dates Condition Status SNOMED Code Problem Primary osteoarthritis of right knee M17.11 Active 658687669 Problem Injury of left shoulder, initial encounter S49.92XA Active 798003726 Problem Elevated blood pressure (not hypertension) R03.0 Active 033000007 ALLERGIES Substance Reaction Event Type Date Status Percocet hives Drug Allergy February, Active Codeine Phosphate vomiting, stomach upset, hallucinations Drug Allergy February, Active bee stings anaphylaxis Non Drug Allergy February, Active SOCIAL HISTORY Never Assessed PLAN OF CARE Activity Details Follow Up 3 Months, prn Reason:CHM VITAL SIGNS Height 65 in 2017-02-20 Weight 193 lbs 2017-02-20 Temperature 98.5 degrees Fahrenheit 2017-02-20 Heart Rate 70 bpm 2017-02-20 Respiratory Rate 20 2017-02-20 BMI 32.11 kg/m2 2017-02-20 Blood pressure systolic 140 mmHg 2017-02-20 Blood pressure diastolic 88 mmHg 2017-02-20 MEDICATIONS Medication Instructions Dosage Frequency Start Date End Date Duration Status EPINEPHrine 0.3 MG/0.3ML Injection one time inject into thigh then go to nearest ER February, [address] Lomas Wort Active EPINEPHrine HCl (Anaphylaxis) Active Glucosamine Active Aleve 220 MG Orally every 12 hrs 1 tablet as needed 12h Active Baclofen 20 mg Orally once daily as needed 1 tablet with food or milk Active Multivitamin/Minerals Active RESULTS No Results PROCEDURES No Known procedures IMMUNIZATIONS No Known Immunizations MEDICAL (GENERAL) HISTORY Type Description Date Surgical History tubal ligation Surgical History right knee arthroscopy x 2 20 years ago Surgical History carpal tunnel release - left 1997
--- OUTSIDE RECORDS SUMMARY | 2019-05-17 17:11 | XMS REPORT ---
Author Author DORONHARSHADTHOM [facility] Address [address] [place] [address] Care Team Providers Care Trimmer Operator Three Knife Name Role Phone SALHARSHDA RomeroELE Unavailable PROBLEMS Type Condition ICD9-CM Code PEU47-DT Code Onset Dates Condition Status SNOMED Code Problem Primary osteoarthritis of right knee M17.11 Active 790809621 Problem Injury of left shoulder, initial encounter S49.92XA Active 769254746 Problem Elevated blood pressure (not hypertension) R03.0 Active 091581081 ALLERGIES No Information ENCOUNTERS Encounter Location Date Diagnosis [place] [address] [id number] [place] [address] Nov, [facility] [id number] [place] [address] Nov, [facility] [id number] [place] [address] Oct, [facility] [id number] [place] [address] Aug, [place] [address] [id number] [place] [address] Aug, [facility] [id number] [place] [address] Aug, [facility] [id number] [place] [address] Aug, Right anterior knee pain M25.561 [facility] [id number] [place] [address] Jun, Cough R05 and Acute bronchitis, unspecified organism J20.9 [facility] [address] [address] February, Encounter for routine adult health examination with abnormal findings Z00.01 [place] [address] [place] [address] February, [place] [address] [id number] [place] [address] February, Encounter for routine adult health examination with abnormal findings Z00.01 and Effusion of right knee M25.461 [place] [id number] [place] [address] February, [place] [id number] [place] [address] Jan, Primary osteoarthritis of right knee M17.11 and Iliotibial band syndrome affecting right lower leg M76.31 [place] [id number] [place] [address] Jan, [place] [address] [id number] [place] [address] Jan, Acute pain of right knee M25.561 ; Hematuria R31.9 and Acute cystitis with hematuria N30.01 [place] [address] [place] [address] Oct, Injury of left shoulder, initial encounter S49.92XA ; Elevated blood pressure (not hypertension) R03.0 and Facial lesion L98.9 IMMUNIZATIONS No Known Immunizations SOCIAL HISTORY Never Assessed REASON FOR VISIT Needs note PLAN OF CARE VITAL SIGNS MEDICATIONS Unknown Medications RESULTS No Results PROCEDURES No Known procedures INSTRUCTIONS MEDICATIONS ADMINISTERED No Known Medications MEDICAL (GENERAL) HISTORY Type Description Date Surgical History tubal ligation Surgical History right knee arthroscopy x 2 20 years ago Surgical History carpal tunnel release - left 1997
--- OUTSIDE RECORDS SUMMARY | 2019-05-17 17:11 | XMS REPORT ---
Author Author THOM SAL Organization [facility] Address [address] [place] [address] Care Team Providers Care Property Claim Rep Name Role Phone THOM SAL Unavailable PROBLEMS Type Condition ICD9-CM Code [id number] Code Onset Dates Condition Status SNOMED Code Problem Primary osteoarthritis of right knee M17.11 Active 006266227 Problem Injury of left shoulder, initial encounter S49.92XA Active 104278533 Problem Elevated blood pressure (not hypertension) R03.0 Active 707801911 ALLERGIES Substance Reaction Event Type Date Status Percocet hives Drug Allergy February, Active Codeine Phosphate vomiting, stomach upset, hallucinations Drug Allergy February, Active bee stings anaphylaxis Non Drug Allergy February, Active SOCIAL HISTORY Never Assessed PLAN OF CARE VITAL SIGNS MEDICATIONS Medication Instructions Dosage Frequency Start Date End Date Duration Status Baclofen 20 mg Orally PRN 1 tablet with food or milk Active Aleve 220 MG Orally every 12 hrs 1 tablet as needed 12h Active Multivitamin/Minerals Active [facility] Wort Active Glucosamine Active RESULTS No Results PROCEDURES No Known procedures IMMUNIZATIONS No Known Immunizations MEDICAL (GENERAL) HISTORY Type Description Date Surgical History tubal ligation Surgical History right knee arthroscopy x 2 20 years ago Surgical History carpal tunnel release - left 1997
--- OUTSIDE RECORDS SUMMARY | 2019-05-17 17:11 | XMS REPORT ---
Author Author THOM SAL Organization [facility] Address [address] [place] [address] Care Team Providers Care Medical Technologist Microbiology Name Role Phone SALTHOM Romero Unavailable PROBLEMS Type Condition ICD9-CM Code KUU56-RD Code Onset Dates Condition Status SNOMED Code Problem Cervical spinal stenosis M48.02 Active 77507179 Problem Perineural cysts G54.8 Active 08402464 Problem Degenerative disc disease, cervical M50.30 Active 14008019 Problem Mixed hyperlipidemia E78.2 Active 465216237 Problem Primary osteoarthritis of left knee M17.12 Active 288415694788263 Problem Current moderate episode of major depressive disorder without prior episode F32.1 Active 94397725 Problem Injury of left shoulder, initial encounter S49.92XA Active 412332083 Problem Anterolisthesis M43.10 Active 933455928 Problem Primary osteoarthritis of right knee M17.11 Active 563527683 Problem Elevated blood pressure (not hypertension) R03.0 Active 190407491 ALLERGIES No Information ENCOUNTERS Encounter Location Date Diagnosis [place] [id number] [place] [phone] 11 Jun, 2018 Primary osteoarthritis of left knee M17.12 and Left anterior knee pain M25.562 [facility] [address] [place] [phone] Jun, [facility] [address] [place] [phone] 27 May, 2018 Cervical spine pain M54.2 [facility] [address] [place] [id number] [place] [phone] 16 May, 2018 [facility] [address] [place] [phone] 13 May, 2018 Elevated blood pressure reading R03.0 ; Pain in right shoulder M25.511 ; Pain in left shoulder M25.512 ; Family history of rheumatoid arthritis Z82.61 ; Current moderate episode of major depressive disorder without prior episode F32.1 and 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 [place] [address] [place] [phone] Nov, [place] [address] [place] [id number] [place] [phone] Nov, [place] [address] [place] [id number] [place] [phone] Oct, [place] [address] [place] [id number] [place] [phone] Aug, [place] [address] [place] [id number] [place] [phone] Aug, [place] [address] [place] [id number] [place] [phone] Aug, [place] [address] [place] [id number] [place] [phone] Aug, Right anterior knee pain M25.561 [place] [address] [place] [id number] [place] [phone] Jun, Cough R05 and Acute bronchitis, unspecified organism J20.9 [place] [address] [place] [phone] February, Encounter for routine adult health examination with abnormal findings Z00.01 [place] [address] [place] [id number] [place] [phone] February, [place] [address] [place] [id number] [place] [phone] February, Encounter for routine adult health examination with abnormal findings Z00.01 and Effusion of right knee M25.461 [place] [address] [place] [phone] February, [place] [address] [place] [id number] [address] Jan, Primary osteoarthritis of right knee M17.11 and Iliotibial band syndrome affecting right lower leg M76.31 [place] [address] [place] [id number] [address] Jan, [place] [address] [place] [id number] [address] Jan, Acute pain of right knee M25.561 ; Hematuria R31.9 and Acute cystitis with hematuria N30.01 [place] [address] [facility] [id number] [address] Oct, Injury of left shoulder, initial encounter S49.92XA ; Elevated blood pressure (not hypertension) R03.0 and Facial lesion L98.9 IMMUNIZATIONS No Known Immunizations SOCIAL HISTORY Never Assessed REASON FOR VISIT order PLAN OF CARE VITAL SIGNS MEDICATIONS No Known Medications RESULTS No Results PROCEDURES No Known [...]
--- OUTSIDE RECORDS SUMMARY | 2019-05-17 17:11 | XMS REPORT ---
Author Author THOM SAL Organization [facility] Address [address] [place] [address] Care Team Providers Care Art Class Model Name Role Phone THOM SAL Unavailable PROBLEMS Type Condition ICD9-CM Code JMS09-LF Code Onset Dates Condition Status SNOMED Code Problem Primary osteoarthritis of right knee M17.11 Active 012147986 Problem Injury of left shoulder, initial encounter S49.92XA Active 049393915 Problem Elevated blood pressure (not hypertension) R03.0 Active 493912576 ALLERGIES No Information SOCIAL HISTORY Never Assessed PLAN OF CARE VITAL SIGNS MEDICATIONS No Known Medications RESULTS No Results PROCEDURES No Known procedures IMMUNIZATIONS No Known Immunizations MEDICAL (GENERAL) HISTORY Type Description Date Surgical History tubal ligation Surgical History right knee arthroscopy x 2 20 years ago Surgical History carpal tunnel release - left 1997
[2019-05-17 17:37] LABS: BASOPHILS % (AUTO) 1 % (0-10); EOSINOPHILS % (AUTO) 1 % (0-10); HEMATOCRIT 45 % (35-52); HEMOGLOBIN 14.8 G/DL (11.5-16.0); LYMPHOCYTES # (AUTO) 2.8 X 10^3 (1.0-4.0); LYMPHOCYTES % (AUTO) 21 % (12-44); MEAN CORPUSCULAR HEMOGLOBIN 31 PG (25-34); MEAN CORPUSCULAR HGB CONC 33 G/DL (32-36); MEAN CORPUSCULAR VOLUME 93 FL (80-99); MEAN PLATELET VOLUME 10.4 FL (7.4-10.4); MONOCYTES # (AUTO) 1.1 X 10^3 (0.0-1.0); MONOCYTES % (AUTO) 8 % (0-12); NEUTROPHILS # (AUTO) 8.9 X 10^3 (1.8-7.8); NEUTROPHILS % (AUTO) 68 % (42-75); PLATELET COUNT 476 10^3/uL (130-400); RED CELL DISTRIBUTION WIDTH 13.2 % (10.0-14.5); WHITE BLOOD COUNT 13.1 10^3/uL (4.3-11.0)
[2019-05-17 17:45] LABS: PROTHROMBIN TIME PATIENT 13.5 SEC (12.2-14.7)
[2019-05-17] MEDS ORDERED: NITROGLYCERIN 0.4 MG SL TABS BTL 25'S SL PRN (17:45)
[2019-05-17] MEDS ORDERED: ASPIRIN 81 MG CHEW (CHILDREN'S ASA) PO ONE (17:45)
[2019-05-17 17:49] LABS: POTASSIUM 3.8 MMOL/L (3.6-5.0); SODIUM 140 MMOL/L (135-145)
--- NOTE | 2019-05-17 17:49 | ED Chest Pain ---
General Chief Complaint: Cardiac/General Problems Stated Complaint: CHEST TIGHTNESS, SOB, DIZZY, WEAK Nursing Triage Note: PT REPORTS SHE HAS HAD CHEST TIGHTNESS OFF AND ON ALL DAY. TODAY IS THE ONE YEAR ANNIVERSARY OF HER HUSBANDS AND SHE WASNT SURE IF SHE WAS JUST HAVING ANXIETY DUE TO THAT STRESSOR. SHE STATES SHE IS LIGHTHEADED WITH SHORTNESS OF BREATH BUT SHE WAS ALSO TALKING REALLY FAST AND ANXIOUS UPON ARRIVAL. Nursing Sepsis Screen: No Definite Risk Source: patient Exam Limitations: no limitations History of Present Illness Date Seen by Provider: May 17, 2019 Time Seen by Provider: 17:15 Initial Comments PT REPORTS SHE HAS HAD CHEST TIGHTNESS OFF AND ON ALL DAY. TODAY IS THE ONE YEAR ANNIVERSARY OF HER HUSBANDS AND SHE WASNT SURE IF SHE WAS JUST HAVING ANXIETY DUE TO THAT STRESSOR. SHE STATES SHE IS LIGHTHEADED WITH SHORTNESS OF BREATH BUT SHE WAS ALSO TALKING REALLY FAST AND ANXIOUS UPON ARRIVAL. The patient also states that she's been doing physical therapy and has some chest tenderness as well. The patient has no risk factors for heart disease-no family history, no hypertension, no high cholesterol, nonsmoker, and is not a diabetic HEART score is H=1 E=0 A=1 R=0 T=0 Total is 2 Timing/Duration: 4-6 hours Severity/Quality: moderate (5/10 scale) Location: substernal, central Radiation: no radiation Activities at Onset: none Prior CP/Workup: no prior chest pain, non-cardiac Modifying Factors: improves with exercise, improves with movement ASA po MANAGER CLEANING: No NTG SL MANAGER CLEANING: No Associated Symptoms: No diaphoresis; dizziness (a little lightheaded) Allergies and Home Medications Allergies Coded Allergies: bee venom protein (honey bee) (Verified Allergy, Severe, Anaphylaxis, 05/17/19) codeine (Verified Allergy, Mild, Vomiting, 05/17/19) Patient Home Medication List Home Medication List Reviewed: Yes Review of Systems Review of Systems Constitutional: no symptoms reported Respiratory: No Symptoms Reported, See HPI Cardiovascular: No Symptoms Reported, See HPI Gastrointestinal: No Symptoms Reported, See HPI Genitourinary: No Symptoms Reported, See HPI Psychiatric/Neurological: No Symptoms Reported, See HPI Endocrine: No Symptoms Reported, See HPI Hematologic/Lymphatic: No Symptoms Reported, See HPI All Other Systems Reviewed Negative Unless Noted: Yes Past Pdxkxbr-Myqspw-Tivmbp Hx Past Med/Social Hx: Reviewed Nursing Past Med/Soc Hx Patient Social History Alcohol Use: Denies Use Recreational Drug Use: No Smoking Status: Never a Smoker 2nd Hand Smoke Exposure: No Recent Foreign Travel: No Contact w/Someone Who Travel: No Recent Infectious Disease Expo: No Recent Hopitalizations: No Physical Abuse: No Sexual Abuse: No Mistreated: No Fear: No Seasonal Allergies Seasonal Allergies: No Past Medical History Surgeries: Yes Orthopedic Respiratory: No Cardiac: No Neurological: No 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 oz. 87.105771qc; BMI Method:Stated General Appearance: No Apparent Distress, WD/WN HEENT: PERRL/EOMI, TMs Normal, Normal ENT Inspection, Pharynx Normal Neck: Full Range of Motion, Normal Inspection, Non Tender Respiratory: Lungs Clear, Normal Breath Sounds, No Accessory Muscle Use, No Respiratory Distress, Other (patient does have some chest tenderness along the right sternal border which somewhat recreates the pain) Cardiovascular: Regular Rate, Rhythm, No Edema, No Gallop, No JVD, No Murmur, Normal Peripheral Pulses Gastrointestinal: Normal Bowel Sounds, No Organomegaly, No Pulsatile Mass, Non Tender Rectal: Deferred Extremity: Normal Capillary Refill, Normal Inspection, Normal Range of Motion, Non Tender, No Calf Tenderness, No Pedal Edema Neurologic/Psychiatric: Alert, Oriented x3, No Motor/Sensory Deficits, Normal Mood/Affect Skin: Normal Color, Warm/Dry Lymphatic: No Adenopathy Progress/Results/Core Measures Results/Orders Lab Results Laboratory Tests Test 05/17/19 17:20 05/17/19 17:40 Range/Units White Blood Count 13.1 H 4.3-11.0 10^3/uL Red Blood Count 4.80 4.35-5.85 10^6/uL Hemoglobin 14.8 11.5-16.0 G/DL Hematocrit 45 35-52 % Mean Corpuscular Volume 93 80-99 FL Mean Corpuscular Hemoglobin 31 25-34 PG Mean Corpuscular Hemoglobin Concent 33 32-36 G/DL Red Cell Distribution Width 13.2 10.0-14.5 % Platelet Count 476 H 130-400 10^3/uL Mean Platelet Volume 10.4 7.4-10.4 FL Neutrophils (%) (Auto) 68 42-75 % Lymphocytes (%) (Auto) 21 12-44 % Monocytes (%) (Auto) 8 0-12 % Eosinophils (%) (Auto) 1 0-10 % Basophils (%) (Auto) 1 0-10 % Neutrophils # (Auto) 8.9 H 1.8-7.8 X 10^3 Lymphocytes # (Auto) 2.8 1.0-4.0 X 10^3 Monocytes # (Auto) 1.1 H 0.0-1.0 X 10^3 Eosinophils # (Auto) 1.0 H 0.0-0.3 10^3/uL Basophils # (Auto) 1.0 H 0.0-0.1 10^3/uL Prothrombin Time 13.5 12.2-14.7 SEC INR Comment 1.0 0.8-1.4 Activated Partial Thromboplast Time 30 24-35 SEC Sodium Level 140 135-145 MMOL/L Potassium Level 3.8 3.6-5.0 MMOL/L Chloride Level 98 98-107 MMOL/L Carbon Dioxide Level 21 21-32 MMOL/L Anion Gap 21 H 5-14 MMOL/L Blood Urea Nitrogen 22 H 7-18 MG/DL Creatinine 1.03 0.60-1.30 MG/DL Estimat Glomerular Filtration Rate 55 BUN/Creatinine Ratio 21 Glucose Level 120 H 70-105 MG/DL Calcium Level 9.7 8.5-10.1 MG/DL Corrected Calcium 8.5-10.1 MG/DL Magnesium Level 1.9 1.8-2.4 MG/DL Total Bilirubin 0.4 0.1-1.0 MG/DL Aspartate Amino Transf (AST/SGOT) 15 5-34 U/L Alanine Aminotransferase (ALT/SGPT) 13 0-55 U/L Alkaline Phosphatase 113 40-136 U/L Myoglobin 21.0 10.0-92.0 NG/ML Troponin I < 0.30 <0.30 NG/ML Total Protein 8.6 H 6.4-8.2 GM/DL Albumin 4.9 H 3.2-4.5 GM/DL My Orders Orders - POLLY RILEY MD Cbc With Automated Diff (05/17/19 17:25) Magnesium (05/17/19 17:25) Chest 1 View Ap/Pa Only (05/17/19 17:25) Ekg Tracing (05/17/19:25) Comprehensive Metabolic Panel (05/17/19 17:25) Myoglobin Serum (05/17/19 17:25) Protime With Inr (05/17/19 17:25) Partial Thromboplastin Time (05/17/19 17:25) O2 (05/17/19:25) Monitor-Rhythm Ecg Trace Only (05/17/19 17:25) Lipid Panel (05/18/19 06:00) Ed Iv/Invasive Line Start (05/17/19 17:25) Troponin I (05/17/19 17:25) Aspirin Chewable Tablet (Baby Aspirin Ch (05/17/19 17:45) Nitroglycerin 0.4 Mg Btl 25's (Nitrostat (05/17/19 17:45) Fibrin Degradation Products (05/17/19 17:44) Medications Given in ED Current Medications Medications Dose Ordered Sig/Jossy Route Start Time Stop Time Status Last Admin Dose Admin Aspirin 324 mg ONCE ONCE PO 05/17/19 17:45 05/17/19 17:47 DC 05/17/19 17:51 324 MG Nitroglycerin 0.4 mg UD PRN SL 05/17/19 17:45 05/17/19 17:50 0.4 MG Vital Signs/I&O 05/17/19 17:19 Temp 98.3 Pulse 109 Resp 22 B/P (MAP) 161/94 (116) Pulse Ox 97 O2 Delivery Room Air Blood Pressure Mean: 116 Progress Progress Note : Time: 18:01 Progress Note PT REPORTS SHE HAS HAD CHEST TIGHTNESS OFF AND ON ALL DAY. TODAY IS THE ONE YEAR ANNIVERSARY OF HER HUSBANDS AND SHE WASNT SURE IF SHE WAS JUST HAVING ANXIETY DUE TO THAT STRESSOR. SHE STATES SHE IS LIGHTHEADED WITH SHORTNESS OF BREATH BUT SHE WAS ALSO TALKING REALLY FAST AND ANXIOUS UPON ARRIVAL. The patient also states that she's been doing physical therapy and has some chest tenderness as well. The patient has no risk factors for heart disease-no family history, no hypertension, no high cholesterol, nonsmoker, and is not a diabetic HEART score is H=1 E=0 A=1 R=0 T=0 Total is 2 Examination is essentially unremarkable except for some chest wall tenderness to somewhat decrease the pain. Her EKG shows a sinus tachycardia with some multiple PVCs otherwise unremarkable Again her heart score is only 2 and as such I feel she is very low risk for this being coronary event I have transitioned the patient to the care of Dr. Mckee EKG : EKG Time: 17:59 Comment EKG reveals a sinus tachycardia with a rate of about 8 axis is normal there is no significant ST or T wave changes, there are some bile multiple ventricular premature complexes. Departure Impression Primary Impression: Chest pain, non-cardiac Disposition: 01 HOME, SELF-CARE Condition: Stable Departure-Patient Inst. Referrals: ERICK DAMIAN APRN-STDTONO (PCP) Primary Care Physician THOM SAL APRN (Family) Primary Care Physician POLLY RILEY MD May 17, 2019 17:49
[2019-05-17 17:50] LABS: ALANINE AMINOTRANSFERASE 13 U/L (0-55); ALBUMIN 4.9 GM/DL (3.2-4.5); ALKALINE PHOSPHATASE 113 U/L (40-136); BILIRUBIN,TOTAL 0.4 MG/DL (0.1-1.0); BUN/CREATININE RATIO 21; CALCIUM 9.7 MG/DL (8.5-10.1); CARBON DIOXIDE 21 MMOL/L (21-32); CHLORIDE 98 MMOL/L (98-107); CREATININE SERUM 1.03 MG/DL (0.60-1.30); GFR ESTIMATED 55; GLUCOSE 120 MG/DL (70-105); MAGNESIUM 1.9 MG/DL (1.8-2.4); TOTAL PROTEIN 8.6 GM/DL (6.4-8.2)
[2019-05-17 18:15] LABS: BACTERIA,URINE MODERATE /HPF; BILIRUBIN,URINE NEGATIVE (NEGATIVE); CLARITY,URINE CLEAR; COLOR,URINE YELLOW; GLUCOSE, URINE (UA) NEGATIVE (NEGATIVE); KETONES,URINE NEGATIVE (NEGATIVE); LEUKOCYTE ESTERASE ,URINE NEGATIVE (NEGATIVE); NITRITE,URINE NEGATIVE (NEGATIVE); PH,URINE 5.5 (5-9); PROTEIN,URINE NEGATIVE (NEGATIVE); UROBILINOGEN,URINE 0.2 MG/DL (NORMAL)
[2019-05-17 18:16] LABS: CALCIUM OXALATE CRYSTALS,UR FEW /LPF
--- NOTE | 2019-05-17 18:55 | NUR ---
Report rec'd from Ember GRANT.
--- NOTE | 2019-05-17 18:58 | NUR ---
Pt being escorted ambulatory to CT.
[2019-05-17] MEDS ORDERED: HOLD METFORMIN - RECEIVED CONTRAST 20 ML VIAL IV SCH (19:00)
[2019-05-17] MEDS ORDERED: CATHETER FLUSH 10 ML SYR IV PRN (19:00)
[2019-05-17] MEDS ORDERED: NS 100 ML (IVPB) BAG IV ONE (19:00)
[2019-05-17] MEDS ORDERED: IOHEXOL 350 MG/ML 150 ML (OMNIPAQUE 350) VIAL IV ONE (19:00)
--- NOTE | 2019-05-17 19:08 | NUR ---
Returned to ambulatory from CT.
--- NOTE | 2019-05-17 19:20 | NUR ---
2nd Troponin drawn at this time. Pt requesting sip of water and granted per Dr Mckee.
--- NOTE | 2019-05-17 19:37 | Diagnostic Imaging Report ---
EXAMINATION: CTA of the chest with contrast dated 05/17/2019. TECHNIQUE: Multiple contiguous axial images were obtained through the chest after uneventful bolus administration of intravenous contrast. 3D reconstructed CTA MIP acquisitions were also performed. Auto Exposure Controls were utilized during the CT exam to meet ALARA standards for radiation dose reduction. INDICATION: Chest tightness, off and on all day. Lightheaded and shortness of breath. COMPARISONS: None. FINDINGS: The visualized aorta is intact and unremarkable with no acute abnormality appreciated. The central and proximal segmental pulmonary arteries are patent. No emboli are seen. Distal vessels are not as well evaluated due to poor opacification. There is no pericardial or pleural effusion. Small hiatal hernia is noted. Visualized upper abdominal structures demonstrate innumerable cystic areas within the liver, most of which are likely cysts, but others are too small for characterization. No adenopathy is seen. Lungs demonstrate bibasilar atelectasis in the lower lobes. Osseous structures are unremarkable for acute abnormality. IMPRESSION: 1. No pulmonary emboli within the main or proximal segmental pulmonary arteries with no acute process in the chest. 2. Hiatal hernia. 3. Innumerable cystic lesions in the liver; see above description. These could be followed to assure stability, some are too small for characterization. Other findings as above. Dictated by: Dictated on workstation # [id number]
[2019-05-17] MEDS ORDERED: CEFDINIR 300 MG (OMNICEF) CAP PO ONE (19:45)
--- NOTE | 2019-05-17 20:00 | NUR ---
Pending results. Pt had been kept informed of the ER being very busy.
[2019-05-17] MEDS ORDERED: CEFU250T80 PO (20:17)
[2019-05-17 20:26] VITALS: BP 129/93
--- NOTE | 2019-05-17 20:26 | NUR ---
Pt discharged to home after review of home instructions verbalized as understood. Prescription handed to patient with discharge instructions.
--- NOTE | 2019-05-17 21:24 | Diagnostic Imaging Report ---
EXAMINATION: Chest radiograph, portable AP view. DATE: May 17, 2019 at 1712 hours. INDICATION: 58-year-old female, chest tightness, shortness of breath. COMPARISON: None. FINDINGS: Heart size and mediastinal contours are unremarkable. There is no identified pneumothorax. There is no large pleural effusion. There is mild tenting of the left hemidiaphragm likely relating to mild atelectasis. There is no additional identified focal airspace consolidation. IMPRESSION: 1. Mild thinning of the region of the left hemidiaphragm most likely relating to mild atelectasis. Dictated by: Dictated on workstation # [id number]
== END 2019-05-17 20:26 | disposition home or self-care (01) ==
LOC: EDUNIT# 17:04 → ER FS 17:06
DX: R07.89 Other chest pain (principal); Z88.5 Allergy status to narcotic agent; Z98.51 Tubal ligation status
CPT/HCPCS: 36415; 71045; 71275; 80053; 81000; 83735; 83874; 84484; 85025; 85379; 85610; 85730; 87088; 93005; 93041

== ENCOUNTER → 2019-10-01 | Outpatient (CLI) | payer BC ==
[~2019-10-01] MED LIST: CATHETER FLUSH 10 ML SYR IV PRN; CEFU250T80 PO; HOLD METFORMIN - RECEIVED CONTRAST 20 ML VIAL IV SCH; IOHEXOL 350 MG/ML 100 ML (OMNIPAQUE 350) VIAL IV ONE; NS 100 ML (IVPB) BAG IV ONE
[2019-10-01 09:50] LABS: BUN/CREATININE RATIO 22; CREATININE SERUM 0.82 MG/DL (0.60-1.30); GFR ESTIMATED > 60
--- NOTE | 2019-10-01 11:06 | Diagnostic Imaging Report ---
EXAMINATION: CT Chest with intravenous contrast. TECHNIQUE: Multiple contiguous axial images were obtained through the chest after the uneventful administration of intravenous contrast. All CT scans use one or more of the following dose optimizing techniques: automated exposure control, MA and/or KvP adjustment based on a patient size and exam type, or iterative reconstruction. HISTORY: Right clavicular nodule. COMPARISON: 05/17/2019 FINDINGS: The lungs are clear without edema or pneumonia. No pleural effusion or pneumothorax. No suspicious nodules. Heart size is normal. No pericardial effusion. Aorta is normal in caliber. There is no axillary or supraclavicular lymphadenopathy. There is no mediastinal lymphadenopathy. 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 There are no suspicious osseous lesions. IMPRESSION: 1. No acute abnormality in the chest. Dictated by: Dictated on workstation # [id number]
== END ==
LOC: LAB FS 09:03
PROVIDERS: ATTEND Orthopaedic Surgery
DX: R59.0 Localized enlarged lymph nodes (principal)
CPT/HCPCS: 36415; 71260; 82565; 84520

== ENCOUNTER → 2019-10-18 | Outpatient (CLI) | payer BC ==
[~2019-10-18] MED LIST changes: +BARIUM SUSPENSION 2.1% (VANILLA SILQ) 450 ML PO ONE
--- NOTE | 2019-10-18 09:10 | Diagnostic Imaging Report ---
PROCEDURE: CT abdomen with and without contrast. TECHNIQUE: Multiple contiguous axial CT images of the abdomen were obtained prior to and after intravenous administration of iodinated contrast. Auto Exposure Controls were utilized during the CT exam to meet ALARA standards for radiation dose reduction. All CT scans use one or more of the following dose optimizing techniques: automated exposure control, MA and/or KvP adjustment based on a patient size and exam type, or iterative reconstruction. INDICATION: Liver lesions, followup. Correlation is made with CT chest dating back to 05/17/2019. FINDINGS: The lung bases are clear. Multiple low-density lesions within the liver, largest in the medial right lobe appear stable. The gallbladder is unremarkable. No biliary ductal dilatation is seen. The pancreas and spleen are unremarkable. No adrenal mass is detected. Precontrast images demonstrate some residual contrast material within both renal collecting systems consistent with prior contrast administration. Aorta is nonaneurysmal. No central retroperitoneal or mesenteric lymphadenopathy is seen. Small and large bowel loops are normal caliber. There is no ascites. IMPRESSION: Stable low-density liver lesions when compared with study dating back to 05/17/2019. No new abnormality is detected. No acute feature is identified. Dictated by: Dictated on workstation # [id number]
== END ==
LOC: RAD FS 08:10
PROVIDERS: ATTEND Orthopaedic Surgery
DX: K76.9 Liver disease, unspecified (principal); R59.0 Localized enlarged lymph nodes
CPT/HCPCS: 74170

== ENCOUNTER 2020-03-02 22:16 | Emergency (ER) | payer BC, MEDICAID ==
[~2020-03-02] VITALS: Ht 165 cm; Wt 86.0 kg
[~2020-03-02 22:16] MED LIST changes: -BARIUM SUSPENSION 2.1% (VANILLA SILQ) 450 ML PO ONE; -CATHETER FLUSH 10 ML SYR IV PRN; -HOLD METFORMIN - RECEIVED CONTRAST 20 ML VIAL IV SCH; -IOHEXOL 350 MG/ML 100 ML (OMNIPAQUE 350) VIAL IV ONE; -NS 100 ML (IVPB) BAG IV ONE
--- OUTSIDE RECORDS SUMMARY | 2020-03-02 22:21 | XMS REPORT | Continuity of Care Document ---
Demographics Preferred Language Unknown Marital Status Unknown Faith Affiliation Unknown Race Unknown Ethnic Group Unknown Author Organization Unknown Address Unknown Phone Unavailable Allergies Active Description Code Type Severity Reaction Onset Reported/Identified Relationship to Patient Clinical Status Yes bee venom protein (honey bee) [id number] Drug Allergy Severe Anaphylaxis 019 Yes codeine [id number] Drug Allergy Mild Vomiting 05/17/2019 Medications There is no data. Problems Date Dx Coded Attending Type Code Diagnosis Diagnosed By 09/01/2017 THOM SAL APRN Ot M17.11 UNILATERAL PRIMARY OSTEOARTHRITIS, RIGHT 09/01/2017 THOM SAL [employer] Ot S83.281A OTH TEAR OF LAT MENSC, CURRENT INJURY, R 09/01/2017 THOM SAL [employer] Ot X58.XXXA EXPOSURE TO OTHER SPECIFIED FACTORS, INI 09/01/2017 THOM SAL [employer] Ot Y99.8 OTHER EXTERNAL CAUSE STATUS 05/29/2018 THOM SAL [employer] Ot M17.11 UNILATERAL PRIMARY OSTEOARTHRITIS, RIGHT 05/29/2018 THOM SAL [employer] Ot S83.281A OTH TEAR OF LAT MENSC, CURRENT INJURY, R 05/29/2018 THOM SAL APRN Ot X58.XXXA EXPOSURE TO OTHER SPECIFIED FACTORS, INI 05/29/2018 THOM SAL [employer] Ot Y99.8 OTHER EXTERNAL CAUSE STATUS 05/29/2018 THOM SAL [employer] Ot M17.11 UNILATERAL PRIMARY OSTEOARTHRITIS, RIGHT 05/29/2018 THOM SAL [employer] Ot S83.281A OTH TEAR OF LAT MENSC, CURRENT INJURY, R 05/29/2018 THOM SAL APRN Ot X58.XXXA EXPOSURE TO OTHER SPECIFIED FACTORS, INI 05/29/2018 THOM SAL APRN Ot Y99.8 OTHER EXTERNAL CAUSE STATUS 06/01/2018 THOM SAL [employer] Ot M19.012 PRIMARY OSTEOARTHRITIS, LEFT SHOULDER 06/01/2018 THOM SAL [employer] Ot M67.814 OTHER SPECIFIED DISORDERS OF TENDON, LEF 06/12/2018 SAL, THOM R [employer] Ot M19.012 PRIMARY OSTEOARTHRITIS, LEFT SHOULDER 06/12/2018 THOM SAL [employer] Ot M67.814 OTHER SPECIFIED DISORDERS OF TENDON, LEF 06/16/2018 THOM SAL [employer] Ot M17.11 UNILATERAL PRIMARY OSTEOARTHRITIS, RIGHT 06/16/2018 THOM SAL [employer] Ot S83.281A OTH TEAR OF LAT MENSC, CURRENT INJURY, R 06/16/2018 THOM SAL [employer] Ot X58.XXXA EXPOSURE TO OTHER SPECIFIED FACTORS, INI 06/16/2018 THOM SAL [employer] Ot Y99.8 OTHER EXTERNAL CAUSE STATUS 06/16/2018 THOM SAL [employer] Ot M19.012 PRIMARY OSTEOARTHRITIS, LEFT SHOULDER 06/16/2018 THOM SAL [employer] Ot M67.814 OTHER SPECIFIED DISORDERS OF TENDON, LEF 06/17/2018 THOM SAL [employer] Ot G96.19 OTHER DISORDERS OF MENINGES, NOT ELSEWHE 06/17/2018 THOM SAL [employer] Ot M43.12 SPONDYLOLISTHESIS, CERVICAL REGION 06/17/2018 THOM SAL [employer] Ot M46.82 OTH INFLAMMATORY SPONDYLOPATHIES, CERVIC 06/17/2018 THOM SAL [employer] Ot M48.02 SPINAL STENOSIS, CERVICAL REGION 06/17/2018 THOM SAL [employer] Ot M50.21 OTHER CERVICAL DISC DISPLACEMENT, HIGH 06/17/2018 THOM SAL [employer] Ot M50.321 OTHER CERVICAL DISC DEGENERATION AT C4-C 06/17/2018 THOM SAL [employer] Ot M99.71 CONN TISS AND DISC STENOSIS OF INTVRT FO 06/22/2018 THOM SAL [employer] Ot G96.19 OTHER DISORDERS OF MENINGES, NOT ELSEWHE 06/22/2018 THOM SAL [employer] Ot M43.12 SPONDYLOLISTHESIS, CERVICAL REGION 06/22/2018 THOM SAL [employer] Ot M46.82 OTH INFLAMMATORY SPONDYLOPATHIES, CERVIC 06/22/2018 THOM SAL [employer] Ot M48.02 SPINAL STENOSIS, CERVICAL REGION 06/22/2018 THOM SAL [employer] Ot M50.21 OTHER CERVICAL DISC DISPLACEMENT, HIGH 06/22/2018 DORON THOM R [employer] Ot M50.321 OTHER CERVICAL DISC DEGENERATION AT C4-C 06/22/2018 HARSHAD SALELE R [employer] Ot M99.71 CONN TISS AND DISC STENOSIS OF INTVRT FO 07/03/2018 DORON THOM R [employer] Ot M17.12 UNILATERAL PRIMARY OSTEOARTHRITIS, LEFT 07/08/2018 DORON THOM R [employer] Ot M17.12 UNILATERAL PRIMARY OSTEOARTHRITIS, LEFT 07/15/2018 HARSHAD SALELE R [employer] Ot M17.12 UNILATERAL PRIMARY OSTEOARTHRITIS, LEFT 07/22/2018 DORON THOM R [employer] Ot G96.19 OTHER DISORDERS OF MENINGES, NOT ELSEWHE 07/22/2018 THOM SAL R [employer] Ot M43.12 SPONDYLOLISTHESIS, CERVICAL REGION 07/22/2018 THOM SAL R [employer] Ot M46.82 OTH INFLAMMATORY SPONDYLOPATHIES, CERVIC 07/22/2018 THOM SAL R [employer] Ot M48.02 SPINAL STENOSIS, CERVICAL REGION 07/22/2018 THOM SAL R [employer] Ot M50.21 OTHER CERVICAL DISC DISPLACEMENT, HIGH 07/22/2018 HARSHAD SALELE R [employer] Ot M50.321 OTHER CERVICAL DISC DEGENERATION AT C4-C 07/22/2018 THOM SAL R [employer] Ot M99.71 CONN TISS AND DISC STENOSIS OF INTVRT FO 05/17/2019 ROSEMARY PENN, POLLY Villagomez Ot R07.89 OTHER CHEST PAIN 05/17/2019 ROSEMARY PENN, POLLY Villagomez Ot Z88.5 ALLERGY STATUS TO NARCOTIC AGENT STATUS 05/17/2019 ROSEMARY PENN, POLLY Villagomez Ot Z98.51 TUBAL LIGATION STATUS 10/04/2019 RICH PENN, TAD Barnard Ot R59.0 LOCALIZED ENLARGED LYMPH NODES 10/14/2019 RICH PENN, TAD Barnard Ot R59.0 LOCALIZED ENLARGED LYMPH NODES 10/19/2019 RICH PENN, TAD Barnard Ot K76.9 LIVER DISEASE, UNSPECIFIED 10/19/2019 RICH PENN, TAD Barnard Ot R59.0 LOCALIZED ENLARGED LYMPH NODES 11/04/2019 RICH PENN, TAD Barnard Ot K76.9 LIVER DISEASE, UNSPECIFIED 11/04/2019 RICH PENN, TAD Barnard Ot R59.0 LOCALIZED ENLARGED LYMPH NODES Procedures There is no data. Results Test Result Range Urine Culture, Routine - 01/31/17 14:45 Urine Culture, Routine Note CBC With Differential/Platelet - 7 11:15 WBC 7.1 x10E3/uL 3.4-10.8 RBC 4.57 x10E6/uL 3.77-5.28 Hemoglobin 14.0 g/dL 11.1-15.9 Hematocrit 42.3 % 34.0-46.6 MCV 93 fL 79-97 MCH 30.6 pg 26.6-33.0 MCHC 33.1 g/dL 31.5-35.7 RDW 13.7 % 12.3-15.4 Platelets 303 x10E3/uL 150-379 Neutrophils 65 % Lymphs 26 % Monocytes 7 % Eos 1 % Basos 0 % Neutrophils (Absolute) 4.6 x10E3/uL 1.4- 7.0 Lymphs (Absolute) 1.9 x10E3/uL 0.7-3.1 Monocytes(Absolute) 0.5 x10E3/uL 0.1-0.9 Eos (Absolute) 0.1 x10E3/uL 0.0-0.4 Baso (Absolute) 0.0 x10E3/uL 0.0-0.2 Immature Granulocytes 1 % Immature Grans (Abs) 0.1 x10E3/uL 0.0-0. 1 Comp. Metabolic Panel (14) - 02/21/17 11 :15 Glucose, Serum 83 mg/dL 65-99 BUN 19 mg/dL 6-24 Creatinine, Serum 0.77 mg/dL 0.57-1.00 eGFR If NonAfricn Am 88 mL/min/1.73 >59 eGFR If Africn Am 101 mL/min/1.73 >5 9 BUN/Creatinine Ratio 25 9-23 Sodium, Serum 141 mmol/L 134-144 Potassium, Serum 4.5 mmol/L 3.5-5.2 Chloride, Serum 106 mmol/L 96-106 Carbon Dioxide, Total 21 mmol/L 18-29 Calcium, Serum 9.3 mg/dL 8.7-10.2 Protein, Total, Serum 7.0 g/dL 6.0-8.5 Albumin, Serum 4.5 g/dL 3.5-5.5 Globulin, Total 2.5 g/dL 1.5-4.5 A/G Ratio 1.8 1.2-2.2 Bilirubin, Total 0.6 mg/dL 0.0-1.2 Alkaline Phosphatase, S 86 IU/L 39-117 AST (SGOT) 14 IU/L 0-40 ALT (SGPT) 17 IU/L 0-32 Lipid Panel - 02/21/17 11:15 Cholesterol, Total 318 mg/dL 100-199 Triglycerides 112 mg/dL 0-149 HDL Cholesterol 121 mg/dL >39 VLDL Cholesterol Terence 22 mg/dL 5-40 LDL Cholesterol Calc 175 mg/dL 0-99 Hemoglobin A1c - 02/21/17 11:15 Hemoglobin A1c 5.1 % 4.8-5.6 Thyroid [place] Profile - 02/21/17 11:15 TSH 3.920 uIU/mL 0.450-4.500 Mycoplasma pneumoniae, IgM Ab - 07/08/17 14:34 M pneumoniae IgM Abs <770 U/mL 0-769 Complete blood count (CBC) with automate d white blood cell (WBC) differential - 05/17/19 17:20 Blood leukocytes automated count (number/volume) 13.1 10*3/uL 4.3-11.0 Blood erythrocytes automated count (number/volume) 4.80 10*6/uL 4.35-5.85 Venous blood hemoglobin measurement (mass/volume) 14.8 g/dL 11.5-16.0 Blood hematocrit (volume fraction) 45 % 35-52 Automated erythrocyte mean corpuscular volume 93 [ foz_us] 80-99 Automated erythrocyte mean corpuscular h emoglobin (mass per erythrocyte) 31 pg 25-34 Automated erythrocyte mean corpuscular h emoglobin concentration measurement (mass/volume) 33 g/dL 32-36 Automated erythrocyte distribution width ratio 13. 2 % 10.0- 14.5 Automated blood platelet count (count/volume) 476 10*3/uL 130-400 Automated blood platelet mean volume measurement 10.4 [foz_us] 7.4-10.4 Automated blood neutrophils/100 leukocytes 68 % 42-75 Automated blood lymphocytes/100 leukocytes 21 % 12-44 Blood monocytes/100 leukocytes 8 % 0-12 Automated blood eosinophils/100 leukocytes 1 % 0-10 Automated blood basophils/100 leukocytes 1 % 0-10 Blood neutrophils automated count (number/volume) 8.9 10*3 1.8-7.8 Blood lymphocytes automated count (number/volume) 2.8 10*3 1.0-4.0 Blood monocytes automated count (number/volume) 1. 1 10*3 0.0-1.0 Automated eosinophil count 1.0 10*3/uL 0 .0-0.3 Automated blood basophil count (count/volume) 1.0 10*3/uL 0.0-0.1 PT panel in platelet poor plasma by coag ulation assay - 05/17/19 17:20 Prothrombin time (PT) in platelet poor plasma by coagu lation assay 13.5 s 12.2-14.7 INR in platelet poor plasma or blood by coagulation as say 1.0 0.8-1.4 Activated partial thromboplastin time (a PTT) in platelet poor plasma bycoagulation assay - 05/17/19 17:20 Activated partial thromboplastin time (a PTT) in platelet poor plasma bycoagulation assay 30 s 24-35 Serum or plasma troponin i.cardiac measu rement (mass/volume) - 05/17/19 17:20 Serum or plasma troponin i.cardiac measurement (mass/v olume) < ng/mL <0.30 Comprehensive metabolic panel - 05/17/19 17:20 Serum or plasma sodium measurement (moles/volume) 140 mmol/L 135-145 Serum or plasma potassium measurement (moles/volume) 3.8 mmol/L 3.6-5.0 Serum or plasma chloride measurement (moles/volume) 98 mmol/L 98-107 Carbon dioxide 21 mmol/L 21-32 Serum or plasma anion gap determination (moles/volume) 21 mmol/L 5-14 Serum or plasma urea nitrogen measurement (mass/volume ) 22 mg/dL 7-18 Serum or plasma creatinine measurement (mass/volume) 1.03 mg/dL 0.60-1.30 Serum or plasma urea nitrogen/creatinine mass ratio 21 NRG Serum or plasma creatinine measurement w ith calculation of estimated glomerular filtration rate 55 NRG Serum or plasma glucose measurement (mass/volume) 120 mg/dL 70-105 Serum or plasma calcium measurement (mass/volume) 9.7 mg/dL 8.5-10.1 Serum or plasma total bilirubin measurement (mass/volu me) 0.4 mg/dL 0.1-1.0 Serum or plasma alkaline phosphatase min surement (enzymatic activity/volume) 113 U/L 40-136 Serum or plasma aspartate aminotransfera se measurement (enzymatic activity/volume) 15 U/L 5-34 Serum or plasma alanine aminotransferase measurement (enzymatic activity/volume) 13 U/L 0-55 Serum or plasma protein measurement (mass/volume) 8.6 g/dL 6.4-8.2 Serum or plasma albumin measurement (mass/volume) 4.9 g/dL 3.2-4.5 Magnesium - 05/17/19 17:20 Magnesium 1.9 mg/dL 1.8-2.4 Myoglobin, serum - 05/17/19 17:20 Myoglobin, serum 21.0 ng/mL 10.0-92.0 Complete urinalysis with reflex to cultu re - 05/17/19 17:20 Urine color determination YELLOW NRG Urine clarity determination CLEAR NR G Urine pH measurement by test strip 5.5 5-9 Specific gravity of urine by test strip 1.025 1.016-1.022 Urine protein assay by test strip, semi-quantitative NEGATIVE NEGATIVE Urine glucose detection by automated test strip NE GATIVE NEGATIVE Erythrocytes detection in urine sediment by light micr oscopy NEGATIVE NEGATIVE Urine ketones detection by automated test strip NE GATIVE NEGATIVE Urine nitrite detection by test strip NEGATIVE NEGATIVE Urine total bilirubin detection by test strip NEGA TIVE NEGATIVE Urine urobilinogen measurement by automated test strip (mass/volume) 0.2 mg/dL NORMAL Urine leukocyte esterase detection by dipstick NEG ATIVE NEGATIVE Automated urine sediment erythrocyte cou nt by microscopy (number/high power field) NONE NRG Automated urine sediment leukocyte count by microscopy (number/high power field) [HPF] NRG Bacteria detection in urine sediment by light microsco py MODERATE NRG Squamous epithelial cells detection in u rine sediment by light microscopy 10-25 NRG Crystals detection in urine sediment by light microsco py PRESENT NRG Casts detection in urine sediment by light microscopy NONE NRG Mucus detection in urine sediment by light microscopy SMALL NRG Complete urinalysis with reflex to culture YES NRG Calcium oxalate crystals detection in ur ine sediment by light microscopy FEW NRG Bacterial urine culture - 05/17/19 17:20 Bacterial urine culture NG NRG Fibrin D-dimer FEU measurement in platel et poor plasma (mass/volume) - 05/17/19 17:40 Fibrin D-dimer FEU measurement in platelet poor plasma (mass/volume) 0.62 ug/mL 0.00-0.49 Serum or plasma troponin i.cardiac measu rement (mass/volume) - 05/17/19 19:20 Serum or plasma troponin i.cardiac measurement (mass/v olume) < ng/mL <0.30 [id number] - 10/01/19 09:11 Serum or plasma urea nitrogen measurement (mass/volume ) 18 mg/dL 7-18 Serum or plasma creatinine measurement (mass/volume) 0.82 mg/dL 0.60-1.30 Serum or plasma urea nitrogen/creatinine mass ratio 22 NRG Serum or plasma creatinine measurement w ith calculation of estimated glomerular filtration rate > NRG Encounters ACCT No. Visit Date/Time Discharge Status Pt. Type Provider Facility Loc./Unit Complaint [id number] 02/02/2017 22:05:00 Document Registration [id number] 07/10/2017 23:07:00 Document Registration [id number] 02/24/2017 14:08:00 Document Registration [id number] 10/18/2019 08:10:00 020 23:59:59 CLS Outpatient TAD VILLANUEVA MD [facility] RAD FS SUPRACLAVICULAT LYMPHADENENOPATHY [id number] 09/27/2019 12:27:00 019 23:59:59 CLS Outpatient TAD VILLANUEVA MD [facility] LAB FS CANCER [id number] 05/17/2019 17:06:00 019 20:26:00 DIS Emergency POLLY RILEY MD [facility] ER FS CHEST TIGHTNESS, SOB, D AMANDA, WEAK [id number] 07/02/2018 08:11:00 018 23:59:59 CLS Outpatient THOM SAL APRN [facility] RAD PRIMARY OSTEOAR THRITIS OF LEFT KNEE [id number] 06/16/2018 09:27:00 018 23:59:59 CLS Outpatient THOM SAL APRN [facility] RAD M54.2 CSPINE PA IN [id number] 05/29/2018 10:39:00 018 23:59:59 CLS Outpatient THOM SAL [employer]AIL [facility] RAD PAIN IN LEFT SH OULDER [id number] 08/29/2017 15:41:00 017 23:59:59 CLS Outpatient THOM SAL APRN [facility] RAD M25.561 RIGHT A NTERIOR KNEE PAIN [id number] 02/28/2017 15:30:00 017 23:59:59 CLS Preadmit THOM SAL APRN [facility] RAD M25.461 [id number] 03/02/2020 22:18:[address] Emergency LIS OROURKE DO [facility] ER FS FELL;ANKLE PAIN
--- NOTE | 2020-03-02 22:51 | ED Lower Extremity ---
General Chief Complaint: Lower Extremity Stated Complaint: FELL;ANKLE PAIN Source: patient Exam Limitations: no limitations History of Present Illness Date Seen by Provider: March 02, 2020 Time Seen by Provider: 22:36 Initial Comments 59-year-old female reports she was going out [place] realize she forgot her keys went back in a house and fell down 2 steps. Patient states that she twisted her right ankle and foot which is painful and also landed on her right side. She was able stand up and walk to the car and drive into the emergency room. Patient denies any head injury denies loss of consciousness and denies any neck injury she does have some discomfort in her right hip but was able to bear weight and walk and she has chronic knee problems and has been considering a total knee replacement for the right knee but no new injury to the right knee with this fall. Patient's fall and injuries are concentrated in the right foot and right ankle. States the last time she felt her ankle hurt like this was when she had torn some tendons. Patient has given informed consent for diagnostic and therapeutic services. X-rays of the foot and ankle right side have been ordered. Patient also admits to having some low back pain but no radiculopathy no loss of control of bowel or bladder. Patient denies other injuries or medical problems. Onset: just prior to arrival Pain/Injury Location: right foot, right ankle Method of Injury: fell (down 2 steps landed on her right ankle and right side) Modifying Factors: Improves With Movement Allergies and Home Medications Allergies Coded Allergies: bee venom protein (honey bee) (Verified Allergy, Severe, Anaphylaxis, 05/17/19) codeine (Verified Allergy, Mild, Vomiting, 05/17/19) Home Medications Cefuroxime Axetil 250 Mg Tablet, 250 MG PO BID Prescribed by: KAITLYNN DIAZ on 05/17/192016 Patient Home Medication List Home Medication List Reviewed: Yes Review of Systems Constitutional: see HPI, other (right ankle right foot pain minimal discomfort right knee right hip also has right-sided lumbosacral pain) EENTM: no symptoms reported Respiratory: no symptoms reported Cardiovascular: no symptoms reported Gastrointestinal: no symptoms reported Genitourinary: no symptoms reported Musculoskeletal: back pain (right sided lumbosacral area), muscle pain, muscle stiffness (right sided secondary to fall) Skin: no symptoms reported Psychiatric/Neurological: Anxiety (from pain in the ankle and foot patient had prior surgery in that area) Past [id number] Hx Past Med/Social Hx: Reviewed Nursing Past Med/Soc Hx Patient Social History Smoking Status: Former Smoker 2nd Hand Smoke Exposure: No Recent Foreign Travel: No Contact w/Someone Who Travel: No Recent Hopitalizations: No Seasonal Allergies Seasonal Allergies: No Past Medical History Surgeries: Yes Orthopedic Respiratory: No Cardiac: No Neurological: No 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 oz. 87.744708vi; BMI Method:Stated General Appearance: WD/WN, moderate distress ([place] to right ankle and foot pain), obese HEENT: PERRL/EOMI, normal ENT inspection, pharynx normal Neck: non-tender, full range of motion, supple, normal inspection Cardiovascular: normal peripheral pulses, regular rate, rhythm, no edema, no gallop, no JVD, no murmur Respiratory: chest non-tender, lungs clear, normal breath sounds, no respirato ry distress, no accessory muscle use Gastrointestinal: normal bowel sounds, non tender, soft, no organomegaly, no pulsatile mass, other (obese) Back: no vertebral tenderness, CVA tenderness (R) (lumbosacral discomfort mostly from muscle strain), muscle spasm (right sided lumbosacral discomfort) Hips: bilateral hip non-tender, bilateral hip normal inspection, bilateral hip normal range of motion, bilateral hip no evidence of injury Legs: bilateral leg non-tender, bilateral leg normal inspection, bilateral leg normal range of motion, bilateral leg no evidence of injury Knees: right knee bone tenderness (chronic right knee issues patient has been considering total knee replacement right side) Ankles: right ankle bone tenderness, right ankle limited range of motion, right ankle pain, right ankle soft tissue tenderness Feet: right foot bone tenderness, right foot limited range of motion, right foot pain, right foot soft tissue tenderness Reflexes: 1+ knee (R), 1+ knee (L) Neurologic/Tendon: normal motor functions (left lower extremity), normal tendon functions (left lower extremity) Neurologic/Psychiatric: grave cleaner II-XII nml as tested, no motor/sensory deficits, alert, normal mood/affect, oriented x 3 Skin: normal color, warm/dry Lymphatic: no adenopathy Progress/Results/Core Measures Results/Orders My Orders Orders - LIS OROURKE DO Ankle 3 View Right (03/02/20 22:44) Foot 3 View Right (03/02/20 22:44) Vital Signs/I&O 03/02/20 22:22 Temp 36.8 Pulse 110 Resp 16 B/P (MAP) 108/77 (87) Pulse Ox 98 O2 Delivery Room Air Departure Impression Primary Impression: Strain of tendon of foot and ankle Disposition: 01 HOME, SELF-CARE Condition: Improved Departure-Patient Inst. Decision time for Depature: 23:40 Referrals: ERICK DAMIAN APRN-STDNT (PCP) Primary Care Physician THOM SAL APRN (Family) Primary Care Physician Patient Instructions: Ankle Sprain (DC), Foot Sprain (DC) Add. Discharge Instructions: 59-year-old female with injury to the right ankle and foot no obvious fracture seen on x-ray possible old sesamoid fracture at the metatarsal head of the first ray but this is asymptomatic at this time. Patient has pain in the lateral aspect of the ankle and foot Kushal wrap were given crutch walking to prevent falls and follow-up care with her primary care providers. Ice and elevate as tolerated. Patient needs to prevent falls. All discharge instructions reviewed with patient and/or family. Voiced understanding. LIS OROURKE DO March 02, 2020 22:51
[2020-03-02 23:56] VITALS: BP 108/77
--- NOTE | 2020-03-03 06:26 | Diagnostic Imaging Report ---
CLINICAL INDICATION: Patient rolled ankle and foot on staircase and now has pain. EXAMS: 1: X-ray of the right foot, 3 views. 2: X-ray of the right ankle, 3 views. COMPARISON: None. FINDINGS: X-ray of the right foot and right ankle shows no acute fracture or dislocation. There is mild hypertrophic calcaneal spurs at the plantar attachment. Ankle mortise and syndesmotic joints are unremarkable. The remainder of the bony structures of the foot and ankle are unremarkable. IMPRESSION: 1: X-ray of the right foot and ankle shows no acute fracture or dislocation. 2: Mildly hypertrophic calcaneal spur at the plantar attachment. Dictated by: Dictated on workstation # [id number]
== END 2020-03-02 23:56 | disposition home or self-care (01) ==
LOC: EDUNIT# 22:16 → ER FS 22:18
DX: S96.911A Strain of unspecified muscle and tendon at ankle and foot level, right foot, initial encounter (principal); Z88.5 Allergy status to narcotic agent; X50.1XXA Overexertion from prolonged static or awkward postures, initial encounter; W10.9XXA Fall (on) (from) unspecified stairs and steps, initial encounter; Y92.019 Unspecified place in single-family (private) house as the place of occurrence of the external cause
CPT/HCPCS: 73610; 73630

== ENCOUNTER 2021-03-22 02:17 | Emergency (ER) | payer MEDICARE, MEDICAID ==
[~2021-03-22] VITALS: Ht 165.1 cm; Wt 81.6 kg
[2021-03-22] MEDS ORDERED: NS IV 1000 ML 1,000 ML IV STA (02:33)
--- NOTE | 2021-03-22 02:41 | ED Cardiac General ---
History of Present Illness General Chief Complaint: Cardiac/General Problems Stated Complaint: FAST HEARTRATE,NAUSEA Nursing Triage Note: PT AMBULATE TO ROOM FS01 WITH C/O TACHYCARDIA STARTING AT 2100 YESTERDAY. PT REPORTS PULSE OF 115 AT HOME. Source: patient History of Present Illness Date Seen by Provider: Mar 22, 2021 Time Seen by Provider: 02:18 Initial Comments 60-year-old female presenting with concerns about fast heart rate. She states t hat since around 9 PM she was having a heart rate up to 115 bpm at home. She reports having some mild nausea as well. She been trying to drink some extra fluids and Pedialyte as well as counting at home. She was continuing to think about her heart rate and felt like her head was pounding. She finally decided to come to the emergency department since she could not get to sleep with her heart racing and her head pounding with nausea was concerning for something was going on. She is and lives alone. She denies any dysuria, fever, chills, abdominal pain, diarrhea. She has allergies and some nasal congestion. Timing/Duration: 4-6 hours (Since around 2100 on the ), intermittent Severity: mild Activities at Onset: activity (Busy working at the [employer]) Prior CP/Workup: no prior chest pain, no prior cardiac workup NTG SL MANAGER LANDSCAPE: No ASA po MANAGER LANDSCAPE: No Associated Systoms: Chest Pain (Mild tightness in the chest), Cough; No Diaphoresis, No Fever/Chills, No Headaches, No Loss of Appetite, No Malaise; Nausea/Vomiting (Mild nausea but no vomiting); No Rash, No Seizure, No Shortness of Air, No Syncope, No Weakness Allergies and Home Medications Allergies Coded Allergies: bee venom protein (honey bee) (Verified Allergy, Severe, Anaphylaxis, 05/17/19) codeine (Verified Allergy, Mild, Vomiting, 05/17/19) Home Medications Cephalexin 500 Mg Capsule, 500 MG PO TID Prescribed by: REANTA HONG on 03/22/21 3351 Patient Home Medication List Home Medication List Reviewed: Yes Review of Systems Review of Systems Constitutional: No chills, No fever EENTM: Nose Congestion Respiratory: Cough (With nasal drainage) Cardiovascular: Chest Pain (Tightness), Lightheadedness, Palpitations Gastrointestinal: Nausea; Denies Vomiting Genitourinary: No Symptoms Reported Musculoskeletal: no symptoms reported Skin: no symptoms reported Psychiatric/Neurological: Anxiety Endocrine: No Symptoms Reported Hematologic/Lymphatic: No Symptoms Reported Past Avehvoq-Gbtwqx-Ptxzcx Hx Past Med/Social Hx: Reviewed Nursing Past Med/Soc Hx Patient Social History Alcohol Use: Denies Use Smoking Status: Never a Smoker 2nd Hand Smoke Exposure: No Recent Infectious Disease Expo: No Recent Hopitalizations: No Seasonal Allergies Seasonal Allergies: No Past Medical History Surgeries: Yes Orthopedic Respiratory: No Cardiac: No 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 oz. 87.404048dg; 29.00 BMI Method:Stated General Appearance: WD/WN, Anxious HEENT: PERRL/EOMI, Pharynx Normal Neck: Full Range of Motion, Normal Inspection, Non Tender, Supple; No Carotid Bruit Respiratory: Chest Non Tender, Lungs Clear, Normal Breath Sounds, No Accessory Muscle Use, No Respiratory Distress Cardiovascular: Regular Rate, Rhythm, No Murmur, Normal Peripheral Pulses Gastrointestinal: Normal Bowel Sounds, No Pulsatile Mass, Non Tender, Soft Rectal: Deferred Extremity: Normal Capillary Refill, Normal Inspection, Normal Range of Motion, Non Tender, No Calf Tenderness, No Pedal Edema Neurologic/Psychiatric: Alert, Oriented x3, No Motor/Sensory Deficits, 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 Norm as Tested Skin: Normal Color, Warm/Dry Progress/Results/Core Measures Results/Orders Lab Results Laboratory Tests Test 03/22/21 02:32 03/22/21 03:13 Range/Units White Blood Count 9.3 4.3-11.0 10^3/uL Red Blood Count 3.92 L 4.35-5.85 10^6/uL Hemoglobin 12.1 11.5-16.0 G/DL Hematocrit 36 35-52 % Mean Corpuscular Volume 92 80-99 FL Mean Corpuscular Hemoglobin 31 25-34 PG Mean Corpuscular Hemoglobin Concent 34 32-36 G/DL Red Cell Distribution Width 13.8 10.0-14.5 % Platelet Count 304 130-400 10^3/uL Mean Platelet Volume 10.4 7.4-10.4 FL Immature Granulocyte % (Auto) 1 % Neutrophils (%) (Auto) 51 42-75 % Lymphocytes (%) (Auto) 30 12-44 % Monocytes (%) (Auto) 11 0-12 % Eosinophils (%) (Auto) 7 0-10 % Basophils (%) (Auto) 1 0-10 % Neutrophils # (Auto) 4.7 1.8-7.8 X 10^3 Lymphocytes # (Auto) 2.8 1.0-4.0 X 10^3 Monocytes # (Auto) 1.0 0.0-1.0 X 10^3 Eosinophils # (Auto) 0.6 H 0.0-0.3 10^3/uL Basophils # (Auto) 0.1 0.0-0.1 10^3/uL Immature Granulocyte # (Auto) 0.1 0.0-0.1 10^3/uL Prothrombin Time 12.6 12.2-14.7 SEC INR Comment 0.9 0.8-1.4 Activated Partial Thromboplast Time 28 24-35 SEC Sodium Level 136 135-145 MMOL/L Potassium Level 3.9 3.6-5.0 MMOL/L Chloride Level 102 98-107 MMOL/L Carbon Dioxide Level 24 21-32 MMOL/L Anion Gap 10 5-14 MMOL/L Blood Urea Nitrogen 26 H 7-18 MG/DL Creatinine 0.82 0.60-1.30 MG/DL Estimat Glomerular Filtration Rate > 60 BUN/Creatinine Ratio 32 Glucose Level 100 70-105 MG/DL Calcium Level 9.2 8.5-10.1 MG/DL Corrected Calcium 9.1 8.5-10.1 MG/DL Magnesium Level 2.0 1.6-2.4 MG/DL Total Bilirubin 0.2 0.1-1.0 MG/DL Aspartate Amino Transf (AST/SGOT) 15 5-34 U/L Alanine Aminotransferase (ALT/SGPT) 16 0-55 U/L Alkaline Phosphatase 110 40-136 U/L Troponin I < 0.30 <0.30 NG/ML Pro-B-Type Natriuretic Peptide 24.3 <75.0 PG/ML Total Protein 6.7 6.4-8.2 GM/DL Albumin 4.1 3.2-4.5 GM/DL Lipase 74 8-78 U/L Urine Color YELLOW Urine Clarity CLEAR Urine pH 6.0 5-9 Urine Specific [place] 1.025 H 1.016-1.022 Urine Protein NEGATIVE NEGATIVE Urine Glucose (UA) NEGATIVE NEGATIVE Urine Ketones NEGATIVE NEGATIVE Urine Nitrite NEGATIVE NEGATIVE Urine Bilirubin NEGATIVE NEGATIVE Urine Urobilinogen 0.2 < = 1.0 MG/DL Urine Leukocyte Esterase 2+ H NEGATIVE Urine RBC (Auto) TRACE H NEGATIVE Urine RBC 0-2 /HPF Urine WBC 5-10 H /HPF Urine Squamous Epithelial Cells 2-5 /HPF Urine Renal Epithelial Cells RARE /HPF Urine Crystals NONE /LPF Urine Bacteria LARGE H /HPF Urine Casts PRESENT /LPF Urine Hyaline Casts RARE /LPF Urine Mucus MODERATE H /LPF Urine Culture Indicated YES My Orders Orders - RENATA HONG MD Cbc With Automated Diff (03/22/21 02:33) Magnesium (03/22/21 02:33) Ekg Tracing (03/22/21 02:33) Comprehensive Metabolic Panel (03/22/21 02:33) Protime With Inr (03/22/21 02:33) Partial Thromboplastin Time (03/22/21 02:33) Monitor-Rhythm Ecg Trace Only (03/22/21 02:33) Ed Iv/Invasive Line Start (03/22/21 02:33) Lipase (03/22/21 02:33) Troponin I Fs (03/22/21 02:33) Probnp Fs (03/22/21 02:33) Ns Iv 1000 Ml (Sodium Chloride 0.9%) (03/22/21 02:33) Ua Culture If Indicated (03/22/21 02:34) Urine Culture (03/22/21 03:13) Ceftriaxone For Iv Use (Rocephin For I (03/22/21 04:15) Vital Signs/I&O 03/22/21 03/22/21 02:19 04:22 Temp 36.1 Pulse 95 89 Resp 18 16 B/P (MAP) 127/93 (104) 125/69 Pulse Ox 99 O2 Delivery Room Air Room Air Blood Pressure Mean: 104 Progress Progress Note #1: Progress Note Reassuring exam and vital signs. Obtain electrocardiogram as well as basic labs and urinalysis. Try IV fluids for hydration. Differential diagnosis includes dehydration, UTI, anxiety Progress Note #2: Progress Note Labs show stable CBC without anemia or high white count. Her chemistry showed mild elevation of her BUN compared to previous labs. Her cardiac enzymes are negative. Her urinalysis was concentrated with a high specific gravity as well as showed leukocyte esterase and bacteria. A culture will be done. We will start her on Rocephin here and discharged on cephalexin. Encouraged to push fluids and rest, finish the course of antibiotics and follow-up through the clinic for continued concerns. She was feeling much improved after fluids here in ED and heart rate down to 80s. Initial ECG Impression Date: Mar 22, 2021 Initial ECG Impression Time: 02:27 Initial ECG Rate: 95 Initial ECG Rhythm: Normal Sinus Initial ECG Comparisson: Unchanged Comment Normal sinus rhythm with a heart rate of 95 bpm. ME interval [address] elevation. QT interval 349 ms with a QTc interval of 439 ms. Appears similar to prior tracing in the system. Departure Impression Primary Impression: Heart palpitations Additional Impressions: Sinus tachycardia Cystitis without hematuria Dehydration Disposition: 01 HOME, SELF-CARE Condition: Stable Departure-Patient Inst. Decision time for Depature: 03:50 Referrals: ELOISA MOSELEY APRN (PCP/Family) Primary Care Physician Patient Instructions: Tachycardia (DC), Palpitations, Urinary Tract Infection, Adult ED, Dehydration, Adult ED Add. Discharge Instructions: Make sure to stay well-hydrated and drink plenty water and electrolyte drinks. Check back with the clinic for continued concerns. Continue with your regular medicines. Finish the full course of antibiotics to treat for UTI All discharge instructions reviewed with patient and/or family. Voiced understanding. Scripts Cephalexin (Cephalexin) 500 Mg Capsule 500 MG PO TID for uti for 3 Days, #9 CAP 0 Refills Prov: RENATA HONG MD 03/22/21 RENATA HONG MD Mar 22, 2021 02:41
[2021-03-22 02:55] LABS: WHITE BLOOD COUNT 9.3 10^3/uL (4.3-11.0)
[2021-03-22 02:56] LABS: BASOPHILS % (AUTO) 1 % (0-10); EOSINOPHILS % (AUTO) 7 % (0-10); HEMATOCRIT 36 % (35-52); HEMOGLOBIN 12.1 G/DL (11.5-16.0); LYMPHOCYTES % (AUTO) 30 % (12-44); MEAN CORPUSCULAR HEMOGLOBIN 31 PG (25-34); MEAN CORPUSCULAR HGB CONC 34 G/DL (32-36); MEAN CORPUSCULAR VOLUME 92 FL (80-99); MEAN PLATELET VOLUME 10.4 FL (7.4-10.4); MONOCYTES % (AUTO) 11 % (0-12); NEUTROPHILS # (AUTO) 4.7 X 10^3 (1.8-7.8); NEUTROPHILS % (AUTO) 51 % (42-75); PLATELET COUNT 304 10^3/uL (130-400)
[2021-03-22 02:57] LABS: BASOPHILS # (AUTO) 0.1 10^3/uL (0.0-0.1); EOSINOPHILS # (AUTO) 0.6 10^3/uL (0.0-0.3); LYMPHOCYTES # (AUTO) 2.8 X 10^3 (1.0-4.0)
[2021-03-22 03:14] LABS: BILIRUBIN,TOTAL 0.2 MG/DL (0.1-1.0); BUN/CREATININE RATIO 32; CALCIUM 9.2 MG/DL (8.5-10.1); CARBON DIOXIDE 24 MMOL/L (21-32); CHLORIDE 102 MMOL/L (98-107); CREATININE SERUM 0.82 MG/DL (0.60-1.30); GFR ESTIMATED > 60; GLUCOSE 100 MG/DL (70-105); POTASSIUM 3.9 MMOL/L (3.6-5.0); SODIUM 136 MMOL/L (135-145)
[2021-03-22 03:15] LABS: ALANINE AMINOTRANSFERASE 16 U/L (0-55); ALBUMIN 4.1 GM/DL (3.2-4.5); ALKALINE PHOSPHATASE 110 U/L (40-136); LIPASE 74 U/L (8-78); TOTAL PROTEIN 6.7 GM/DL (6.4-8.2)
[2021-03-22 03:19] LABS: PROTHROMBIN TIME PATIENT 12.6 SEC (12.2-14.7)
[2021-03-22 03:20] LABS: INR 0.9 (0.8-1.4)
[2021-03-22 03:33] LABS: CLARITY,URINE CLEAR; COLOR,URINE YELLOW
[2021-03-22 03:34] LABS: BILIRUBIN,URINE NEGATIVE (NEGATIVE); GLUCOSE, URINE (UA) NEGATIVE (NEGATIVE); KETONES,URINE NEGATIVE (NEGATIVE); LEUKOCYTE ESTERASE ,URINE 2+ (NEGATIVE); NITRITE,URINE NEGATIVE (NEGATIVE); PROTEIN,URINE NEGATIVE (NEGATIVE); RBC,URINE 0-2 /HPF
[2021-03-22 03:35] LABS: BACTERIA,URINE LARGE /HPF; HYALINE CASTS, URINE RARE /LPF; RENAL EPITHELIAL CELLS,URINE RARE /HPF
[2021-03-22] MEDS ORDERED: cefTRIAXone 1,000 MG in WATER (STERILE) FOR INJECTION 10 ML IV STA (03:50)
[2021-03-22] MEDS ORDERED: CEPH500C PO (03:51)
[2021-03-22] MEDS ORDERED: cefTRIAXone 2,000 MG VIAL ONE (04:13)
[2021-03-22] MEDS ORDERED: WATER (STERILE) FOR INJECTION 20 ML ONE (04:13)
[2021-03-22] MEDS ORDERED: cefTRIAXone 2,000 MG in WATER (STERILE) FOR INJECTION 20 ML IV ONE (04:15)
[2021-03-22 04:22] VITALS: BP 125/69
== END 2021-03-22 04:22 | disposition home or self-care (01) ==
LOC: EDUNIT# 02:17 → ER FS 02:19
DX: R00.2 Palpitations (principal); R00.0 Tachycardia, unspecified; N30.90 Cystitis, unspecified without hematuria; E86.0 Dehydration
CPT/HCPCS: 36415; 80053; 81000; 83690; 83735; 83880; 84484; 85025; 85610; 85730; 87088; 93005; 93041

== ENCOUNTER 2021-08-10 18:08 | Emergency (ER) | payer MEDICARE, MEDICAID ==
[~2021-08-10 18:08] MED LIST changes: +CEPH500C PO
--- OUTSIDE RECORDS SUMMARY | 2021-08-10 18:12 | XMS REPORT | Clinical Summary ---
Author Author [facility] Organization [facility] Address Unknown Phone Unavailable Care Team Providers Care Passenger Representative Name Role Phone Krishan Jean APRN PCP Source Comments Some departments are not documenting in the electronic medical record. If you d o not see the information that you expected, contact Release of Information in [facility] Information Management department at [phone] for further assistan ce in locating additional records.[facility] Allergies Comments Active Allergy Reactions Severity Noted Date Codeine NAUSEA AND Low 05/06/2018 VOMITING Unclassified Drug ANAPHYLAXIS High 05/25/2018 Medications End Date Status Medication Sig Dispensed Refills Start Date Active NAPROXEN SODIUM (ALEVE Take 480 mg 0 PO) by mouth twice daily. Active famotidine (PEPCID) 20 mg Take 20 mg by 0 tablet mouth twice daily. Active acetaminophen (PAIN Take by 0 RELIEF ADULT PO) mouth as Needed. Active lisinopriL (ZESTRIL) 10 every 24 0 // 201 mg tablet hours. 9 Active rosuvastatin (CRESTOR) 10 every 24 0 10/0 3/201 mg tablet hours. [address] every 24 0 (PROTONIX) 40 mg tablet hours. 0 Active traZODone (DESYREL) 50 mg 50 mg as 0 12/0 tablet Needed. 9 Active clindamycin (CLEOCIN) 300 Take 300 mg 0 mg capsule by mouth every 6 hours. Take with 8oz of water. Active Methylsulfonylmethane Take by 0 (MSM) 1,000 mg cap mouth. Active Problems Problem Noted Date Primary osteoarthritis of right knee 01/01/2021 Tear of lateral meniscus of right knee 01/01/2021 Subacromial bursitis of both shoulders 12/19/2019 Neck pain 09/23/2018 Entrapment of right ulnar nerve 05/06/2018 Entrapment of left ulnar nerve 05/06/2018 ERRONEOUS ENCOUNTER--DISREGARD 05/06/2018 Surgical History Surgery Date Site/Laterality Comments KNEE SURGERY 1988, 1989 Right WRIST SURGERY 10/13/1999 - Left tendon release 10/12/2000 Medical History Medical History Date Comments Shoulder pain, bilateral Arthritis Hypertension Hyperlipemia GERD (gastroesophageal reflux disease) Family History Medical History Relation Name Comments Anesthetic Complication Father Osteoporosis Father Arthritis-rheumatoid Maternal Grandfather Arthritis-rheumatoid Maternal Grandmother Anesthetic Complication Mother Cancer Mother Osteoporosis Mother Arthritis-rheumatoid Paternal Grandfather Arthritis-rheumatoid Paternal Grandmother Relation Name Status Comments Father Maternal Grandfather Maternal Grandmother Mother Alive Paternal Grandfather Paternal Grandmother Social History Date Tobacco Use Types Packs/Day Years Used Never Smoker Smokeless Tobacco: Never Used Comments Alcohol Use Standard Drinks/Week No 0 (1 standard drink = 0.6 o z pure alcohol) Sex Assigned at Date Recorded Female 03/13/2020 9:36 AM CDT Last Filed Vital Signs Reading Time Taken Comments Vital Sign 140/79 01/01/2021 2:23 PM CDT Blood Pressure 105 01/01/2021 2:23 PM CDT Pulse 36.9 C (98.5 F) 05/06/2018 2:31 PM CDT Temperature 16 03/29/2020 1:45 PM CDT Respiratory Rate 100% 03/29/2020 1:45 PM CDT Oxygen Saturation - - Inhaled Oxygen Concentration 86.8 kg (191 lb 6.4 oz) 03/29/2020 1:45 PM CDT Weight 165.1 cm (5' 5") 01/01/2021 2:23 PM CDT Height 31.85 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 Plan of Treatment Health Maintenance Due Date Last Done Comments MEDICARE ANNUAL WELLNESS 1962 VISIT HIV SCREENING 1977 DTAP/TDAP VACCINES (1 - 1980 Tdap) HEPATITIS C SCREENING 1980 PHYSICAL (COMPREHENSIVE) 1980 EXAM CERVICAL CANCER SCREENING 1983 BREAST CANCER SCREENING 2002 COLORECTAL CANCER 2012 SCREENING SHINGLES RECOMBINANT 2012 VACCINE (1 of 2) INFLUENZA VACCINE 05/13/2021 Results Not on filefrom Last 3 Months Insurance Type Payer Benefit Subscriber ID Effective Phone Address Plan / Dates Group Medicare MEDICARE MEDICARE [id number] 2020- PART A AND Present B AETNA MEDICAID AETNA [id number] 2019-P [facility] [address] [facility] (Home) [place] [phone] 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
[2021-08-10] MEDS ORDERED: NS IV 1000 ML 1,000 ML IV STA (18:19)
[2021-08-10] MEDS ORDERED: hydrALAZINE (APESOLINE) 20 MG/ML VIAL IV STA (18:19)
[2021-08-10 18:25] LABS: COLOR,URINE STRAW
--- NOTE | 2021-08-10 18:28 | ED General ---
General Chief Complaint: Cardiac/General Problems Stated Complaint: HIGH BP Source of Information: Patient, Old Records History of Present Illness Date Seen by Provider: Aug 10, 2021 Time Seen by Provider: 18:11 Initial Comments 60 yo female presents with complaint of not feeling well for last few days and then this afternoon she had elevated blood pressure despite taking extra of her lisinopril. She had measured her blood pressure at 158 for the systolic numbers at home when when that happened despite having extra lisinopril earlier in the day she rushed to urgent care. The were getting ready to close and they told her that with her pressure that high she needed to come to the emergency department. No call was received from urgent care that they were sending the patient. Patient reports that she has had previous urinary tract infection that caused her to have elevated blood pressure. She denies any pain or burning with urination. She takes lisinopril 10 mg a day and usually that controls her blood pressure. She denies having fever, chills, cough, chest pain, shortness of breath, blurred vision. She states she has a mild headache and can feel her heartbeat so that is how she knows that she has an elevated blood pressure. She denies any pain or numbness in her extremities. She has had no nausea, vomiting, diarrhea. Timing/Duration: 2-3 Days Severity: Moderate Modifying Factors: worse with Eating (Been eating more processed foods and extra sodium in the last few days) Associated Systoms: No Chest Pain, No Cough, No Diaphoresis, No Fever/Chills; Headaches (Mild throbbing headache with feeling her pulse); No Loss of Appetite, No Malaise, No Nausea/Vomiting, No Rash, No Seizure, No Shortness of Air, No Syncope, No Weakness Allergies and Home Medications Allergies Coded Allergies: bee venom protein (honey bee) (Verified Allergy, Severe, Anaphylaxis, 05/17/19) codeine (Verified Allergy, Mild, Vomiting, 05/17/19) Patient Home Medication List Home Medication List Reviewed: Yes Cephalexin (Cephalexin) 500 Mg Capsule, 500 MG PO TID Prescribed by: RENATA HONG on 08/10/21 8366 Review of Systems Review of Systems Constitutional: No chills, No fever EENTM: No ear pain, No blurred vision, No double vision, No vision loss, No epistaxis Respiratory: No cough, No short of breath Cardiovascular: No chest pain, No edema, No palpitations Gastrointestinal: see HPI; No nausea, No vomiting Genitourinary: No dysuria Musculoskeletal: no symptoms reported Skin: no symptoms reported Psychiatric/Neurological: See HPI Past Dlwtjwg-Xfcnzc-Wfnbzo Hx Seasonal Allergies Seasonal Allergies: No Past Medical History Surgeries: Yes Orthopedic Respiratory: No Cardiac: Yes Hypertension 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 oz. 87.118970md; 29.00 BMI Method:Stated General Appearance: WD/WN, Anxious HEENT: PERRL/EOMI, Pharynx Normal Neck: Full Range of Motion, Normal Inspection, Non Tender, Supple; No Carotid Bruit Respiratory: Chest Non Tender, Lungs Clear, Normal Breath Sounds, No Accessory Muscle Use, No Respiratory Distress Cardiovascular: Regular Rate, Rhythm, No Murmur, Normal Peripheral Pulses Gastrointestinal: Normal Bowel Sounds, No Pulsatile Mass, Non Tender, Soft Rectal: Deferred Extremity: Normal Capillary Refill, Normal Inspection, No Pedal Edema Neurologic/Psychiatric: Alert, Oriented x3, No Motor/Sensory Deficits, 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 Norm as Tested Skin: Normal Color, Warm/Dry Progress/Results/Core Measures Suspected Sepsis SIRS Temperature: Pulse: Respiratory Rate: Laboratory Tests 08/10/21 18:25: White Blood Count 8.5 Blood Pressure / Mean: Laboratory Tests 08/10/21 18:25: Creatinine 0.80, INR Comment 0.9, Platelet Count 298, Total Bilirubin 0.3 Results/Orders Lab Results Laboratory Tests Test 08/10/21 18:20 08/10/21 18:25 Range/Units Urine Color STRAW Urine Clarity CLEAR Urine pH 7.0 5-9 Urine Specific [place] <=1.005 1.016-1.022 Urine Protein NEGATIVE NEGATIVE Urine Glucose (UA) NEGATIVE NEGATIVE Urine Ketones NEGATIVE NEGATIVE Urine Nitrite NEGATIVE NEGATIVE Urine Bilirubin NEGATIVE NEGATIVE Urine Urobilinogen 0.2 < = 1.0 MG/DL Urine Leukocyte Esterase 1+ H NEGATIVE Urine RBC (Auto) NEGATIVE NEGATIVE Urine RBC 0-2 /HPF Urine WBC 10-25 H /HPF Urine Squamous Epithelial Cells 2-5 /HPF Urine Crystals NONE /LPF Urine Bacteria TRACE /HPF Urine Casts NONE /LPF Urine Mucus SMALL H /LPF Urine Culture Indicated YES White Blood Count 8.5 4.3-11.0 10^3/uL Red Blood Count 4.34 3.80-5.11 10^6/uL Hemoglobin 13.3 11.5-16.0 g/dL Hematocrit 40 35-52 % Mean Corpuscular Volume 92 80-99 fL Mean Corpuscular Hemoglobin 31 25-34 pg Mean Corpuscular Hemoglobin Concent 33 32-36 g/dL Red Cell Distribution Width 13.3 10.0-14.5 % Platelet Count 298 130-400 10^3/uL Mean Platelet Volume 10.4 9.0-12.2 fL Immature Granulocyte % (Auto) 1 % Neutrophils (%) (Auto) 53 42-75 % Lymphocytes (%) (Auto) 33 12-44 % Monocytes (%) (Auto) 8 0-12 % Eosinophils (%) (Auto) 5 0-10 % Basophils (%) (Auto) 1 0-10 % Neutrophils # (Auto) 4.5 1.8-7.8 X 10^3 Lymphocytes # (Auto) 2.8 1.0-4.0 X 10^3 Monocytes # (Auto) 0.7 0.0-1.0 X 10^3 Eosinophils # (Auto) 0.4 H 0.0-0.3 10^3/uL Basophils # (Auto) 0.1 0.0-0.1 10^3/uL Immature Granulocyte # (Auto) 0.0 0.0-0.1 10^3/uL Prothrombin Time 12.2 12.2-14.7 SEC INR Comment 0.9 0.8-1.4 Activated Partial Thromboplast Time 29 24-35 SEC Sodium Level 138 135-145 MMOL/L Potassium Level 4.0 3.6-5.0 MMOL/L Chloride Level 102 98-107 MMOL/L Carbon Dioxide Level 26 21-32 MMOL/L Anion Gap 10 5-14 MMOL/L Blood Urea Nitrogen 17 7-18 MG/DL Creatinine 0.80 0.60-1.30 MG/DL Estimat Glomerular Filtration Rate 74 BUN/Creatinine Ratio 21 Glucose Level 99 70-105 MG/DL Calcium Level 9.3 8.5-10.1 MG/DL Corrected Calcium 8.9 8.5-10.1 MG/DL Magnesium Level 2.1 1.6-2.4 MG/DL Total Bilirubin 0.3 0.1-1.0 MG/DL Aspartate Amino Transf (AST/SGOT) 21 5-34 U/L Alanine Aminotransferase (ALT/SGPT) 20 0-55 U/L Alkaline Phosphatase 114 40-136 U/L Troponin I < 0.30 <0.30 NG/ML Total Protein 7.4 6.4-8.2 GM/DL Albumin 4.5 3.2-4.5 GM/DL My Orders Orders - RENATA HONG MD Cbc With Automated Diff (08/10/21 18:19) Magnesium (08/10/21 18:19) Ekg Tracing (08/10/21 18:19) Comprehensive Metabolic Panel (08/10/21 18:19) Protime With Inr (08/10/21 18:19) Partial Thromboplastin Time (08/10/21 18:19) Monitor-Rhythm Ecg Trace Only (08/10/21 18:19) Ed Iv/Invasive Line Start (08/10/21 18:19) Troponin I Fs (08/10/21 18:19) Hydralazine Injection (Apresoline Inject (08/10/21 18:19) Ns Iv 1000 Ml (Sodium Chloride 0.9%) (08/10/21 18:19) Ua Culture If Indicated (08/10/21 18:19) Urine Culture (08/10/21 18:20) Ceftriaxone (Rocephin) (08/10/21 18:39) Vital Signs/I&O 08/10/21 08/10/21 18:16 19:15 Temp 36.5 Pulse 83 92 Resp 16 18 B/P (MAP) 183/88 (119) 137/75 Pulse Ox 97 98 O2 Delivery Room Air Capillary Refill : Progress Note #1: Progress Note With patient not having vision changes, severe headache, chest pain, n/v, will check labs and ECG and try Hydralazine to help with pressure. Give 1 L NS for hydration. Pt reports having UTI in past that contributed to symptoms and elevated bp so will obtain UA as well. Differential diagnosis includes hypertension that is labile, electrolyte imbalance, UTI, myocardial infarction, heart failure, anxiety Progress Note #2: Progress Note UA shows some signs for UTI. Will treat with rocephin 1 gm IV bolus here and d/c on cephalexin. CBC is stable without acute significant abnormality. ECG sinus rhythm without ischemia. Progress Note #3: Progress Note Chemistry without acute significant abnormality and normal cardiac enzymes. Since she has not felt well all day if it was related to myocardial infarction she should have elevated troponin by now. Pt feels better and BP down to 137/76 so will discharge to home. Take regular lisinopril tonight and continue antibiotics for UTI. ECG Initial ECG Impression Date: Aug 10, 2021 Initial ECG Impression Time: 18:23 Initial ECG Rate: 74 Initial ECG Rhythm: Normal Sinus Initial ECG Comparisson: Unchanged Comment Normal sinus rhythm with heart rate of [address] elevation. SD interval 163 ms. QT interval 395 ms with a QTc interval 439 ms. Appears similar to prior tracing in the system. Departure Impression Primary Impression: Labile hypertension Additional Impression: Cystitis without hematuria Disposition: 01 HOME, SELF-CARE Condition: Stable Departure-Patient Inst. Decision time for Depature: 19:08 Referrals: ELOISA MOSELEY APRN (PCP/Family) Primary Care Physician Patient Instructions: High Blood Pressure ED, DASH Diet, Urinary Tract Infection, Adult ED Add. Discharge Instructions: Drink plenty of water and stay well hydrated. Avoid processed foods and foods high in sodium and preservatives. Take the antibiotic for UTI. The antibiotic given tonight, Rocephin (Ceftriaxone), gives you 24 hours of treatment for UTI and the prescription for Cephalexin was sent to [facility]. They are open until 7 pm tomorrow night. Take your regular dose fo Lisinopril tonight when you go to bed. All discharge instructions reviewed with patient and/or family. Voiced understanding. Scripts Cephalexin (Cephalexin) 500 Mg Capsule 500 MG PO TID for uti for 3 Days, #9 CAP 0 Refills Prov: RENATA HONG MD 08/10/21 RENATA HONG MD Aug 10, 2021 18:28
[2021-08-10 18:30] LABS: BILIRUBIN,URINE NEGATIVE (NEGATIVE); CLARITY,URINE CLEAR; GLUCOSE, URINE (UA) NEGATIVE (NEGATIVE); KETONES,URINE NEGATIVE (NEGATIVE); LEUKOCYTE ESTERASE ,URINE 1+ (NEGATIVE); NITRITE,URINE NEGATIVE (NEGATIVE); PROTEIN,URINE NEGATIVE (NEGATIVE); RBC,URINE 0-2 /HPF
[2021-08-10 18:31] LABS: BACTERIA,URINE TRACE /HPF
[2021-08-10 18:33] LABS: BASOPHILS # (AUTO) 0.1 10^3/uL (0.0-0.1); BASOPHILS % (AUTO) 1 % (0-10); EOSINOPHILS # (AUTO) 0.4 10^3/uL (0.0-0.3); EOSINOPHILS % (AUTO) 5 % (0-10); HEMATOCRIT 40 % (35-52); HEMOGLOBIN 13.3 g/dL (11.5-16.0); LYMPHOCYTES # (AUTO) 2.8 X 10^3 (1.0-4.0); LYMPHOCYTES % (AUTO) 33 % (12-44); MEAN CORPUSCULAR HEMOGLOBIN 31 pg (25-34); MEAN CORPUSCULAR HGB CONC 33 g/dL (32-36); MEAN CORPUSCULAR VOLUME 92 fL (80-99); MEAN PLATELET VOLUME 10.4 fL (9.0-12.2); MONOCYTES # (AUTO) 0.7 X 10^3 (0.0-1.0); MONOCYTES % (AUTO) 8 % (0-12); NEUTROPHILS # (AUTO) 4.5 X 10^3 (1.8-7.8); NEUTROPHILS % (AUTO) 53 % (42-75); PLATELET COUNT 298 10^3/uL (130-400); WHITE BLOOD COUNT 8.5 10^3/uL (4.3-11.0)
[2021-08-10] MEDS ORDERED: cefTRIAXone 1,000 MG in WATER (STERILE) FOR INJECTION 10 ML IV STA (18:39)
[2021-08-10 18:44] LABS: INR 0.9 (0.8-1.4); PROTHROMBIN TIME PATIENT 12.2 SEC (12.2-14.7)
[2021-08-10] MEDS ORDERED: CEPH500C PO (18:44)
[2021-08-10 18:53] LABS: ALBUMIN 4.5 GM/DL (3.2-4.5); BILIRUBIN,TOTAL 0.3 MG/DL (0.1-1.0); CALCIUM 9.3 MG/DL (8.5-10.1); CREATININE SERUM 0.8 MG/DL (0.60-1.30); MAGNESIUM 2.1 MG/DL (1.6-2.4); TOTAL PROTEIN 7.4 GM/DL (6.4-8.2)
[2021-08-10 19:15] VITALS: BP 137/75
== END 2021-08-10 19:15 | disposition home or self-care (01) ==
LOC: EDUNIT# 18:08 → ER FS 18:09
DX: I10 Essential (primary) hypertension (principal); N30.90 Cystitis, unspecified without hematuria
CPT/HCPCS: 36415; 80053; 81000; 83735; 84484; 85025; 85610; 85730; 87088; 93005; 93041; 96374; 96375

== ENCOUNTER → 2022-06-21 | Outpatient (CLI) | payer OTHER, MEDICAID ==
--- NOTE | 2022-06-21 11:02 | Diagnostic Imaging Report ---
PROCEDURE: CT abdomen and pelvis without contrast. TECHNIQUE: Multiple contiguous axial images were obtained through the abdomen and pelvis without the use of intravenous contrast. Auto Exposure Controls were utilized during the CT exam to meet ALARA standards for radiation dose reduction. INDICATION: Followup liver cysts. COMPARISON: CT abdomen and pelvis without and with IV contrast 10/18/2019. FINDINGS: Stable multiple low-attenuation probable cysts throughout the liver. No interval increase in size or number. The largest of these is in the posterior right hepatic lobe measuring up to 1.1 cm. Lung bases are clear. The gallbladder, pancreas, spleen, adrenals, kidneys, collecting systems, bladder and appendix are negative on this noncontrast exam. No free intraperitoneal air or fluid. No lymphadenopathy. No evidence of bowel obstruction. Osseous structures are intact. Mild degenerative changes at L5-S1. IMPRESSION: 1. No acute CT findings in the abdomen or pelvis on this noncontrast exam. 2. Stable benign cysts in the liver. Dictated by: Dictated on workstation # [id number]
== END ==
LOC: RAD FS 10:21
PROVIDERS: ATTEND Nurse Practitioner
DX: K76.89 Other specified diseases of liver (principal)
CPT/HCPCS: 74176